=== PATIENT | female | born 1960 | race Caucasian/White ===

== ENCOUNTER 2021-03-02 09:08 | Inpatient (IN) ==
[2021-03-02] MEDS ORDERED: ONDANSETRON INJ 2 MG/ML 2 ML VIAL IV STA (09:53)
[2021-03-02] MEDS ORDERED: MoRPHine SULFATE 4 MG/ML 1 ML CARP\\VIAL IV STA (09:53)
[2021-03-02] MEDS ORDERED: dexAMETHasone**PF** 10 MG/ML VIAL IV ONE (09:53)
[2021-03-02] MEDS ORDERED: ACETAMINOPHEN 1,000 MG/100 ML VIAL IV STA (09:53)
--- NOTE | 2021-03-02 10:00 | Emergency Department Note ---
History of Present Illness General Chief complaint: Back Injury/Pain Stated complaint: BACK PAIN Time Seen by Provider: 03/02/21 09:44 History of Present Illness Maximum Pain Intensity: 10 This is a 60-year-old female that presents to the emergency department via private vehicle accompanied by male with complaints of "back pain". The patient notes that this past Tuesday evening she fell while attempting get into bed. She notes that she injured her back when doing so. She denies striking the head or loss of consciousness. She states that she then presented here to be seen in the ED on Tuesday and notes that she had imaging performed. She notes that there was a fracture. She notes difficulty managing the pain at home. She also notes trouble urinating. She also notes that upon arriving here she coughed and accidentally moved her bowels in her pants. Current pain 05/03. She does note pain radiating into her legs. She denies any weakness or numbness/tingling in the genital region. Home Medications Medication Instructions Recorded Confirmed Type sucralfate 1 gram tablet (Carafate) 1 g PO ACHS #180 tab 09/02/20 03/02/21 Rx dicyclomine 20 mg tablet 20 mg PO TID #90 tab 01/09/21 03/02/21 Rx propylthiouracil 50 mg tablet 50 mg PO BID #90 tab 01/29/21 03/02/21 Rx albuterol sulfate 90 mcg/actuation 2 puff INHALATION Q6H PRN #18 g 02/16/21 03/02/21 Rx aerosol inhaler (Ventolin HFA) trazodone 100 mg tablet 100 mg PO HS #90 tab 02/26/21 03/02/21 Rx amlodipine 5 mg tablet (Norvasc) 5 mg PO BID 02/28/21 03/02/21 History clonazepam 0.5 mg tablet (Klonopin) 0.5 mg PO HS 02/28/21 03/02/21 History fluticasone fur. 100 mcg-umeclid 1 inh INHALATION DAILY PRN 02/28/21 03/02/21 History 62.5 mcg-vilant 25 mcg inhalat.powder (Trelegy Ellipta) hydrochlorothiazide 12.5 mg tablet 12.5 mg PO QAM 02/28/21 03/02/21 History hydrocodone 5 mg-acetaminophen 325 1 tab PO Q4H PRN #15 tab 02/28/21 03/02/21 Rx mg tablet losartan 50 mg tablet (Cozaar) 50 mg PO BID 02/28/21 03/02/21 History montelukast 10 mg tablet 10 mg PO HS 02/28/21 03/02/21 History (Singulair) nicotine 14 mg/24 hr daily 1 patch TRANSDERMAL DAILY 02/28/21 03/02/21 History transdermal patch (Nicoderm CQ) ondansetron 4 mg disintegrating 4 mg PO Q6H PRN #10 tab 02/28/21 03/02/21 Rx tablet pantoprazole 40 mg tablet,delayed 40 mg PO BID 02/28/21 03/02/21 History release (Protonix) sertraline 100 mg tablet (Zoloft) 100 mg PO HS 02/28/21 03/02/21 History Allergies Allergy/AdvReac Type Severity Reaction Status Date / Time amitriptyline Allergy Intermediate Headache Verified 03/02/21 10:56 Penicillins Allergy Unknown Unknown Verified 03/02/21 10:56 codeine AdvReac Mild Vomiting Verified 03/02/21 10:56 Past Med/Surg History Medical History Cervical disc disease Chronic diarrhea Depression with anxiety Hepatic steatosis patient unaware noted by ultrasound 07/10/2020 Hypertension Irritable bowel disease Ovarian cancer (~09/2019) had hysterectomy Tobacco dependence due to cigarettes .5-1 pack per day since age 18 Surgical History H/O sinus surgery Status post hysterectomy Status post right knee replacement Status post tubal ligation Family History Mother Heart disease Father Heart disease Parkinsons Myocardial infarction Denies family history of Ovarian cancer Prostate cancer Breast cancer Colorectal cancer Social History Smoking Status: Current every day smoker Tobacco Type: Cigarettes Age Started Using Tobacco: 18; packs per day: 1.5; Cigarettes Per Day: 20; Second Hand Exposure: No; Hx Alcohol Use: Yes Alcohol Intake Frequency: Monthly or Less Hx Substance Use: Yes (cbd-thc lotion) Preferred Language: Tongan Communication Ability: Effective Visual Impairment: No Limitations Hearing Ability: Normal Embedded Linux Developer Required: No Beliefs That Will Affect Care: None marital status: Current Living Situation: Alone current occupational status: disabled Feels Safe at Home: Yes Diet Comment: due to symtpoms of N & V caffeine: Yes during the past year weight has: decreased > 10 lbs Dental Care, Regularly: No Physical Activity Frequency: 5-6 Times per Week Seatbelt Use: always Sunscreen Use: Yes Assistive Devices: Glasses Physical Exam Vital Signs Vital Signs - 24 hr 03/02/21 09:15 03/02/21 09:28 03/02/21 10:00 Temperature 36.4 C L Temperature Source Temporal Artery Scan Pulse Rate 97 H 75 88 Pulse Rate [Left Finger] Pulse Rate from SpO2 Sensor 77 87 Pulse Rhythm [Left Finger] Pulse Strength [Left Finger] Respiratory Rate 16 22 20 Respiratory Effort / Characteristics Non-Labored Respiratory Depth Normal Respiratory Pattern Blood Pressure 111/59 L 131/70 122/66 Blood Pressure [Right Arm] Blood Pressure Mean 76 90 84 Blood Pressure Mean [Right Arm] Blood Pressure Position [Right Arm] Pulse Oximetry 90 96 92 Oxygen Delivery Method Room Air Room Air Room Air Oxygen Flow Rate Sepsis Recent Fever Within 48 Hours No Sepsis New/Unexplained Change in Mental Status No Sepsis Action Taken by Nursing No Action Required Oxygen Flow Rate - Titration Pulse Oximetry Post Tiitration 03/02/21 10:15 03/02/21 11:08 03/02/21 11:10 Temperature Temperature Source Pulse Rate 103 H 93 H Pulse Rate [Left Finger] Pulse Rate from SpO2 Sensor 103 H 94 H Pulse Rhythm [Left Finger] Pulse Strength [Left Finger] Respiratory Rate 16 20 Respiratory Effort / Characteristics Respiratory Depth Respiratory Pattern Blood Pressure Blood Pressure [Right Arm] Blood Pressure Mean Blood Pressure Mean [Right Arm] Blood Pressure Position [Right Arm] Pulse Oximetry 88 L 96 95 Oxygen Delivery Method Room Air Nasal Cannula Nasal Cannula Oxygen Flow Rate 2 2 Sepsis Recent Fever Within 48 Hours Sepsis New/Unexplained Change in Mental Status Sepsis Action Taken by Nursing Oxygen Flow Rate - Titration 2 Pulse Oximetry Post Tiitration 97 03/02/21 11:35 03/02/21 11:40 03/02/21 11:50 Temperature Temperature Source Pulse Rate 90 90 77 Pulse Rate [Left Finger] Pulse Rate from SpO2 Sensor 90 76 Pulse Rhythm [Left Finger] Pulse Strength [Left Finger] Respiratory Rate 16 14 16 Respiratory Effort / Characteristics Respiratory Depth Respiratory Pattern Blood Pressure Blood Pressure [Right Arm] Blood Pressure Mean Blood Pressure Mean [Right Arm] Blood Pressure Position [Right Arm] Pulse Oximetry 94 95 96 Oxygen Delivery Method Nasal Cannula Nasal Cannula Nasal Cannula Oxygen Flow Rate 2 2 2 Sepsis Recent Fever Within 48 Hours Sepsis New/Unexplained Change in Mental Status Sepsis Action Taken by Nursing Oxygen Flow Rate - Titration Pulse Oximetry Post Tiitration 03/02/21 12:00 03/02/21 13:02 03/02/21 13:10 Temperature Temperature Source Pulse Rate 76 74 74 Pulse Rate [Left Finger] Pulse Rate from SpO2 Sensor 76 73 72 Pulse Rhythm [Left Finger] Pulse Strength [Left Finger] Respiratory Rate 15 21 21 Respiratory Effort / Characteristics Respiratory Depth Respiratory Pattern Blood Pressure 123/72 Blood Pressure [Right Arm] Blood Pressure Mean 89 Blood Pressure Mean [Right Arm] Blood Pressure Position [Right Arm] Pulse Oximetry 91 93 94 Oxygen Delivery Method Nasal Cannula Nasal Cannula Nasal Cannula Oxygen Flow Rate 2 2 2 Sepsis Recent Fever Within 48 Hours Sepsis New/Unexplained Change in Mental Status Sepsis Action Taken by Nursing Oxygen Flow Rate - Titration Pulse Oximetry Post Tiitration 03/02/21 13:20 03/02/21 13:30 03/02/21 13:40 Temperature Temperature Source Pulse Rate 69 73 88 Pulse Rate [Left Finger] Pulse Rate from SpO2 Sensor 70 73 90 Pulse Rhythm [Left Finger] Pulse Strength [Left Finger] Respiratory Rate 13 12 19 Respiratory Effort / Characteristics Respiratory Depth Respiratory Pattern Blood Pressure Blood Pressure [Right Arm] Blood Pressure Mean Blood Pressure Mean [Right Arm] Blood Pressure Position [Right Arm] Pulse Oximetry 92 93 92 Oxygen Delivery Method Nasal Cannula Nasal Cannula Nasal Cannula Oxygen Flow Rate 2 2 2 Sepsis Recent Fever Within 48 Hours Sepsis New/Unexplained Change in Mental Status Sepsis Action Taken by Nursing Oxygen Flow Rate - Titration Pulse Oximetry Post Tiitration 03/02/21 13:50 03/02/21 14:00 03/02/21 14:10 Temperature Temperature Source Pulse Rate 79 88 93 H Pulse Rate [Left Finger] Pulse Rate from SpO2 Sensor 80 92 H 93 H Pulse Rhythm [Left Finger] Pulse Strength [Left Finger] Respiratory Rate 19 18 14 Respiratory Effort / Characteristics Respiratory Depth Respiratory Pattern Blood Pressure Blood Pressure [Right Arm] Blood Pressure Mean Blood Pressure Mean [Right Arm] Blood Pressure Position [Right Arm] Pulse Oximetry 92 92 92 Oxygen Delivery Method Nasal Cannula Nasal Cannula Nasal Cannula Oxygen Flow Rate 2 2 2 Sepsis Recent Fever Within 48 Hours Sepsis New/Unexplained Change in Mental Status Sepsis Action Taken by Nursing Oxygen Flow Rate - Titration Pulse Oximetry Post Tiitration 03/02/21 14:20 03/02/21 14:30 03/02/21 14:52 Temperature Temperature Source Pulse Rate 75 72 86 Pulse Rate [Left Finger] Pulse Rate from SpO2 Sensor 75 72 Pulse Rhythm [Left Finger] Pulse Strength [Left Finger] Respiratory Rate 13 14 18 Respiratory Effort / Characteristics Respiratory Depth Respiratory Pattern Blood Pressure 120/66 Blood Pressure [Right Arm] Blood Pressure Mean 84 Blood Pressure Mean [Right Arm] Blood Pressure Position [Right Arm] Pulse Oximetry 91 91 95 Oxygen Delivery Method Nasal Cannula Nasal Cannula Oxygen Flow Rate 2 2 Sepsis Recent Fever Within 48 Hours Sepsis New/Unexplained Change in Mental Status Sepsis Action Taken by Nursing Oxygen Flow Rate - Titration Pulse Oximetry Post Tiitration 03/02/21 14:53 03/02/21 16:27 Temperature Temperature Source Pulse Rate Pulse Rate [Left Finger] 76 90 Pulse Rate from SpO2 Sensor Pulse Rhythm [Left Finger] Regular Regular Pulse Strength [Left Finger] Normal Normal Respiratory Rate 15 17 Respiratory Effort / Characteristics Non-Labored Spontaneous Non-Labored Spontaneous Respiratory Depth Normal Normal Respiratory Pattern Regular Regular Blood Pressure Blood Pressure [Right Arm] 120/66 125/71 Blood Pressure Mean Blood Pressure Mean [Right Arm] 84 89 Blood Pressure Position [Right Arm] Lying Sitting Pulse Oximetry 93 96 Oxygen Delivery Method Nasal Cannula Nasal Cannula Oxygen Flow Rate 2 2 Sepsis Recent Fever Within 48 Hours Sepsis New/Unexplained Change in Mental Status Sepsis Action Taken by Nursing Oxygen Flow Rate - Titration Pulse Oximetry Post Tiitration VITAL SIGNS - Vital signs and nursing notes were reviewed. Stable and afebrile. GENERAL -60-year-old female appearing her stated age who appears to be in pain. Communicates well with provider and answers questions appropriately. SKIN - Without rashes. No meningeal or petechial rash. HEAD - NC/AT. NECK - Neck with FROM. No nuchal rigidity. LUNGS - Chest wall symmetric without accessory muscle use, intercostals retractions, or central cyanosis. Normal vesicular breath sounds CTA B/L. No wheezes, rales, or rhonchi appreciated. CARDIAC - RRR with S1/S2. No murmur, rubs, or gallops appreciated. ABDOMEN - Abdominal contour normal without pulsations or visible masses. BS normoactive all four quadrants. No tenderness, palpable masses, hepatosplenomegaly, or ascites noted. EXTREMITIES - No clubbing or peripheral cyanosis. Lower extremity Achilles reflex intact bilaterally. +5/5 strength noted in UE/LE bilaterally. NEUROLOGIC - Cranial nerves II through XII grossly intact. Sensory intact to light touch throughout. PSYCH - A&O, and cooperates fully with examiner. Pt is very pleasant and interacts well with examiner. Course Administered Medications Discontinued Medications Dexamethasone Sodium Phosphate (DexamethasonePf 10 Mg/Ml Vial) 10 mg IV NOW ONE Stop: 03/02/21 09:54 Last Admin: 03/02/21 10:45 Dose: 10 mg Documented by: [id number] Acetaminophen (Ofirmev) 1,000 mg in 100 mls @ 400 mls/hr IV NOW STA Stop: 03/02/21 10:07 Last Infusion: 03/02/21 11:09 Dose: 0 mls/hr Documented by: [id number] Admin: 03/02/21 10:46 Dose: 400 mls/hr Documented by: [id number] Lorazepam (Ativan) 0.5 mg in 1 mls @ 1 mls/min IV NOW STA Stop: 03/02/21 13:08 Last Admin: 03/02/21 15:32 Dose: 1 mls/min Documented by: [id number] Ioversol (Optiray 320 100ml) 94 ml IV ONCE ONE Stop: 03/02/21 11:24 Last Admin: 03/02/21 11:23 Dose: 94 ml Documented by: [id number] Lorazepam (Lorazepam 2 Mg/4 Ml Vial) Confirm Administered Dose 2 mg .ROUTE .STK- MED ONE Stop: 03/02/21 15:31 Last Admin: 03/02/21 15:38 Dose: Not Given Documented by: [id number] Morphine Sulfate (Morphine Sulfate 4 Mg/Ml 1 Ml Carp\\Vial) 4 mg IV NOW STA Stop: 03/02/21 09:54 Last Admin: 03/02/21 10:41 Dose: 4 mg Documented by: [id number] Ondansetron HCl (Ondansetron Inj 2 Mg/Ml 2 Ml Vial) 4 mg IV NOW STA Stop: 03/02/21 09:54 Last Admin: 03/02/21 10:39 Dose: 4 mg Documented by: [id number] Medical Decision Making Laboratory Data Result diagrams: 03/02/21 10:02 03/02/21 10:02 Lab Results 03/02/21 03/02/21 03/02/21 Range/Units 10:02 10:02 10:28 WBC 6.70 (4.8-10.8) K/uL RBC 4.08 L (4.2-5.4) M/uL Hgb 12.9 (12.0-16.0) g/dL Hct 37.8 (37-47) % MCV 92.6 (80-100) fL MCH 31.6 (25-34) pg MCHC 34.1 (32-36) g/dL RDW Std Deviation 41.8 (36.4-46.3) fL RDW Coeff of Gladys 12.2 (11.5-14.5) % Plt Count 185 (130-400) K/uL MPV 10.2 (7.4-10.4) fL Immature Gran % (Auto) 0.3 % Neut % (Auto) 72.2 % Lymph % (Auto) 11.5 % Parmer % (Auto) 13.7 % Eos % (Auto) 1.9 % Baso % (Auto) 0.4 % Neut # (Auto) 4.83 (1.4-6.5) K/uL Lymph # (Auto) 0.77 L (1.2-3.4) K/uL Parmer # (Auto) 0.92 H (0.11-0.59) K/uL Eos # (Auto) 0.13 (0-0.5) K/uL Baso # (Auto) 0.03 (0-0.2) K/uL Immature Gran # (Auto) 0.02 (0.00-0.02) K/uL Sodium 127 L (136-145) mmol/L Potassium 4.5 D (3.5-5.1) mmol/L Chloride 95 L (98-107) mmol/L Carbon Dioxide 27 (21-32) mmol/L Anion Gap 5.0 (3-11) BUN 13 (7-18) mg/dl Creatinine 0.91 (0.6-1.2) mg/dl Est Cr Clr Drug Dosing 62.3 ml/min Est GFR ( Amer) 78.4 ml/min Est GFR (Non-Af Amer) 67.6 ml/min BUN/Creatinine Ratio 14.0 (10-20) Glucose 91 (70-99) mg/dl Calcium 8.7 (8.5-10.1) mg/dl Total Bilirubin 0.5 (0.2-1) mg/dl AST 20 (15-37) U/L ALT 20 (12-78) U/L Alkaline Phosphatase 98 (45-117) U/L Total Protein 7.1 (6.4-8.2) gm/dl Albumin 3.4 (3.4-5.0) gm/dl Globulin 3.7 (2.5-4.0) gm/dl Albumin/Globulin Ratio 0.9 (0.9-2) Specimen Hemolysis Urine Color Urine Appearance (Clear) Urine pH (4.5-7.5) Ur Specific [place] (1.000-1.030) Urine Protein (Negative) Urine Glucose (UA) (Negative) Urine Ketones (Negative) Urine Blood (Negative) Urine Nitrite (Negative) Urine Bilirubin (Negative) Urine Urobilinogen (Negative) Ur Leukocyte Esterase (Negative) Urine RBC (0-4) /hpf Urine WBC (0-5) /hpf Ur Epithelial Cells (0-5) /lpf Urine Bacteria (Negative) COVID-19 Eval Order Covid19 at [facility] SARS-CoV-2 (PCR) (Negative) 03/02/21 03/02/21 Range/Units 10:28 10:50 WBC (4.8-10.8) K/uL RBC (4.2-5.4) M/uL Hgb (12.0-16.0) g/dL Hct (37-47) % MCV (80-100) fL MCH (25-34) pg MCHC (32-36) g/dL RDW Std Deviation (36.4-46.3) fL RDW Coeff of Gladys (11.5-14.5) % Plt Count (130-400) K/uL MPV (7.4-10.4) fL Immature Gran % (Auto) % Neut % (Auto) % Lymph % (Auto) % Parmer % (Auto) % Eos % (Auto) % Baso % (Auto) % Neut # (Auto) (1.4-6.5) K/uL Lymph # (Auto) (1.2-3.4) K/uL Parmer # (Auto) (0.11-0.59) K/uL Eos # (Auto) (0-0.5) K/uL Baso # (Auto) (0-0.2) K/uL Immature Gran # (Auto) (0.00-0.02) K/uL Sodium (136-145) mmol/L Potassium (3.5-5.1) mmol/L Chloride (98-107) mmol/L Carbon Dioxide (21-32) mmol/L Anion Gap (3-11) BUN (7-18) mg/dl Creatinine (0.6-1.2) mg/dl Est Cr Clr Drug Dosing ml/min Est GFR ( Amer) ml/min Est GFR (Non-Af Amer) ml/min BUN/Creatinine Ratio (10-20) Glucose (70-99) mg/dl Calcium (8.5-10.1) mg/dl Total Bilirubin (0.2-1) mg/dl AST (15-37) U/L ALT (12-78) U/L Alkaline Phosphatase (45-117) U/L Total Protein (6.4-8.2) gm/dl Albumin (3.4-5.0) gm/dl Globulin (2.5-4.0) gm/dl Albumin/Globulin Ratio (0.9-2) Specimen Hemolysis Urine Color Yellow Urine Appearance Clear (Clear) Urine pH 5.5 (4.5-7.5) Ur Specific [place] <= 1.005 (1.000-1.030) Urine Protein Trace H (Negative) Urine Glucose (UA) Negative (Negative) Urine Ketones Negative (Negative) Urine Blood Negative (Negative) Urine Nitrite Negative (Negative) Urine Bilirubin Negative (Negative) Urine Urobilinogen Negative (Negative) Ur Leukocyte Esterase Negative (Negative) Urine RBC 0-4 (0-4) /hpf Urine WBC 0-5 (0-5) /hpf Ur Epithelial Cells 10-20 H (0-5) /lpf Urine Bacteria Negative (Negative) COVID-19 Eval Order SARS-CoV-2 (PCR) NEGATIVE (Negative) Imaging Data Radiologist's Impression: Lumbar Spine CT 03/02/21 09:53 CT SCAN OF THE ABDOMEN AND PELVIS WITH IV CONTRAST; CT SCAN OF THE LUMBAR SPINE WITH IV CONTRAST CLINICAL HISTORY: Fall. Low back pain. Generalized abdominal pain. COMPARISON STUDY: Abdominal CT dated 02/06/2010. Lumbar spine radiographs dated 02/28/2021. TECHNIQUE: Following the IV administration of 94 cc of Optiray 320, CT scan of the abdomen and pelvis is performed from the lung bases to the proximal femora. Additionally, CT scan of the lumbar spine is performed from the lower thoracic spine to the sacrum. Images for both examinations are reviewed in the axial, sagittal, and coronal planes. IV contrast was administered without complication. A dose lowering technique was utilized adhering to the principles of ALARA. FINDINGS: Lung bases: The heart is normal in size noting a small pericardial effusion. There are coronary artery calcifications. The lung bases are clear. Liver: The contrast-enhanced liver is normal in size, contour, and attenuation. There is no intrahepatic biliary ductal dilatation. The hepatic veins and portal veins are patent. Gallbladder: Unremarkable. Spleen: Normal in size and attenuation. Pancreas: Unremarkable. Adrenal glands: Unremarkable. Kidneys: The contrast enhanced kidneys are normal in size and without hydro nephrosis. The kidneys enhance symmetrically. Abdominal vasculature: The abdominal aorta is normal in course and caliber noting moderate atherosclerotic calcification. Bowel: There is moderate colonic diverticulosis without CT evidence of acute div erticulitis. Moderate fecal retention is seen throughout the colon. No bowel obstruction is identified. The appendix is well-visualized and normal. Peritoneum: There is no intraperitoneal free air or abdominal ascites. Lymphadenopathy: None. Pelvic viscera: The bladder is normal as visualized. The uterus is surgically a bsent. No adnexal lesion is seen. Skeletal structures: See below for dedicated discussion of the lumbar spine. The skeletal structures appear osteopenic. No lytic or blastic lesions are seen. The bony pelvis and proximal femora appear intact. LUMBAR SPINE: There is an acute superior endplate compression fracture of L1 with mild loss of height and surrounding paravertebral edema. No significantly retropulsed fragments are identified. Vertebral body height is otherwise maintained throughout the lumbar spine. There is minimal anterolisthesis at L4- L5. Alignment is otherwise preserved. The transverse and spinous processes are intact. There is no evidence of spondylolysis. Facet arthropathy is seen in the lower lumbar region. There is advanced disc space narrowing with endplate sclerosis at L5-S1. A large posterior disc osteophyte complex is noted at this level within an inferiorly extruded fragment. Only mild degenerative disc space narrowing is seen at the remaining lumbar levels. Broad-based posterior disc bulge is noted at L4-L5. This likely contribute to acquired compromise the central canal and impinges the exiting bilateral L4 nerve roots. The paraspinous soft tissues are within normal limits. IMPRESSION: 1. There is no evidence of solid organ injury in the abdomen or pelvis. 2. There is an acute superior endplate compression fracture of L1 with mild loss of height as detailed above. No retropulsed fragments are identified. 3. No additional acute fracture is seen involving the lumbar spine. 4. Degenerative disc disease at L4-L5 and L5-S1 as above. An inferiorly extruded calcified disc fragment is suggested at L5. 5. Additional findings as above. ACT 112: Negative or not required by law. Electronically signed by: Ariel Cummings M.D. 03/02/2021 11:[address] 03/02/21 09:53 CT thoracic spine w con HISTORY: 60 years-old Female Fall on tuesday, severe back pain, abd pain . Acute severe mid back pain status post fall COMPARISON: CT lumbar spine of same day, lumbar spine radiographs 02/28/2021 and 12/29/2020. TECHNIQUE: Multiple axial CT images of the thoracic spine were obtained following the intravenous administration of 94 mL Optiray 320. A dose lowering technique was used consistent with the principals of ALARA. FINDINGS: Acute versus subacute L1 compression deformity with 30% superior endplate height loss is unchanged from the 02/28/2021 exam, however is new from 12/29/2020. No retropulsion. No additional acute fracture or subluxation. Mild multilevel in tervertebral disc space narrowing with mild to moderate spondylitic spurring and mild facet arthrosis. The imaged ribs appear intact. The imaged lung still appear clear. No pneumothorax. IMPRESSION: 1. 30% superior endplate L1 compression deformity is new from 12/29/2020 and appears acute. No retropulsion. 2. No acute thoracic spine fracture identified. 3. Degenerative changes as above. ACT 112: Negative or not required by law. The above report was generated using voice recognition software. It may contain grammatical, syntax or spelling errors. Electronically signed by: Booker Rosenberg M.D. 03/02/2021 11:46 AM Abdomen/Pelvis CT 03/02/21 09:55 CT SCAN OF THE ABDOMEN AND PELVIS WITH IV CONTRAST; CT SCAN OF THE LUMBAR SPINE WITH IV CONTRAST CLINICAL HISTORY: Fall. Low back pain. Generalized abdominal pain. COMPARISON STUDY: Abdominal CT dated 02/06/2010. Lumbar spine radiographs dated 02/28/2021. TECHNIQUE: Following the IV administration of 94 cc of Optiray 320, CT scan of the abdomen and pelvis is performed from the lung bases to the proximal femora. Additionally, CT scan of the lumbar spine is performed from the lower thoracic spine to the sacrum. Images for both examinations are reviewed in the axial, sagittal, and coronal planes. IV contrast was administered without complication. A dose lowering technique was utilized adhering to the principles of ALARA. FINDINGS: Lung bases: The heart is normal in size noting a small pericardial effusion. There are coronary artery calcifications. The lung bases are clear. Liver: The contrast-enhanced liver is normal in size, contour, and attenuation. There is no intrahepatic biliary ductal dilatation. The hepatic veins and portal veins are patent. Gallbladder: Unremarkable. Spleen: Normal in size and attenuation. Pancreas: Unremarkable. Adrenal glands: Unremarkable. Kidneys: The contrast enhanced kidneys are normal in size and without hydronephrosis. The kidneys enhance symmetrically. Abdominal vasculature: The abdominal aorta is normal in course and caliber noting moderate atherosclerotic calcification. Bowel: There is moderate colonic diverticulosis without CT evidence of acute diverticulitis. Moderate fecal retention is seen throughout the colon. No bowel obstruction is identified. The appendix is well-visualized and normal. Peritoneum: There is no intraperitoneal free air or abdominal ascites. Lymphadenopathy: None. Pelvic viscera: The bladder is normal as visualized. The uterus is surgically absent. No adnexal lesion is seen. Skeletal structures: See below for dedicated discussion of the lumbar spine. The skeletal structures appear osteopenic. No lytic or blastic lesions are seen. The bony pelvis and proximal femora appear intact. LUMBAR SPINE: There is an acute superior endplate compression fracture of L1 with mild loss of height and surrounding paravertebral edema. No significantly retropulsed fragments are identified. Vertebral body height is otherwise maintained throughout the lumbar spine. There is minimal anterolisthesis at L4- L5. Alignment is otherwise preserved. The transverse and spinous processes are intact. There is no evidence of spondylolysis. Facet arthropathy is seen in the lower lumbar region. There is advanced disc space narrowing with endplate sclerosis at L5-S1. A large posterior disc osteophyte complex is noted at this level within an inferiorly extruded fragment. Only mild degenerative disc space narrowing is seen at the remaining lumbar levels. Broad-based posterior disc bulge is noted at L4-L5. This likely contribute to acquired compromise the central canal and impinges the exiting bilateral L4 nerve roots. The paraspinous soft tissues are within normal limits. IMPRESSION: 1. There is no evidence of solid organ injury in the abdomen or pelvis. 2. There is an acute superior endplate compression fracture of L1 with mild loss of height as detailed above. No retropulsed fragments are identified. 3. No additional acute fracture is seen involving the lumbar spine. 4. Degenerative disc disease at L4-L5 and L5-S1 as above. An inferiorly extruded calcified disc fragment is suggested at L5. 5. Additional findings as above. ACT 112: Negative or not required by law. Electronically signed by: Ariel Cummings M.D. 03/02/2021 11:50 AM Lumbar Spine MRI 03/02/21 12:10 LUMBAR SPINE MRI HISTORY: fall, low back pain TECHNIQUE: Multiplanar multisequence MRI of the lumbar spine was performed without the use of contrast. COMPARISON: Lumbar spine CT 03/02/2021. FINDINGS: For the purpose of the report the L5-S1 disc space will be located on axial image 29 of 31. There is 4 mm of anterolisthesis of L4 on L5. Severe disc space narrowing at L5- S1. Mild disc space narrowing throughout the remaining lumbar spine. There is an acute mild superior endplate compression fracture at L1, unchanged. This demonstrates up to 10% loss of height anteriorly. No associated retropulsion. No additional fractures identified within the lumbar spine. Endplate edema at L5-S1 is likely due to the long-standing degenerative change. The conus terminates at the L1-L2 disc space level. Mild paravertebral edema at the L1 level is likely secondary to the adjacent fracture. Mild motion artifact. L1-L2: No significant central canal or neural foraminal narrowing. L2-L3: Small broad-based posterior disc bulge without significant central canal or neural foraminal narrowing. L3-L4: No significant central canal or neural foraminal narrowing. L4-L5: Small broad-based posterior disc bulge with ligamentum and facet hypertrophy resulting in [id number] central canal and mild to moderate bilateral neural foraminal narrowing. L5-S1: Broad-based posterior disc bulge without significant central canal na rrowing. There is moderate right and mild left neural foraminal narrowing. IMPRESSION: 1. Redemonstration of the acute mild superior endplate compression fracture at L1. No associated retropulsion. 2. No additional fractures within the lumbar spine. 3. Degenerative changes as described above. ACT 112: Negative or not required by law. Electronically signed by: Diego Claros M.D. 03/02/2021 4:36 PM MDM Narrative Patient was seen and evaluated as above in room A12. Review was performed of nursing notes and vital signs. I did review pertinent previous visits and patient history. After obtaining a thorough history and physical examination the above work up was performed. Patient presents to us today with back pain. She is nontoxic on examination but does appear to be in pain. Her vital signs are stable. Options of care were discussed with the patient. IV access established. Labs were drawn. She was given IV acetaminophen, IV dexamethasone, IV morphine, IV Zofran. She was reevaluated improvement. CT scan was obtained of the T-spine, L-spine and CT scan of the abdomen and pelvis. Results of these as above. There is redemonstration of the acute mild superior endplate compression fracture at L1. No associated upper propulsion. There does not appear to be any acute finding within the abdomen or pelvis. There is some degenerative disc disease noted at L4-L5 and L5-L1. There is also a comment about the L1 c ompression deformity being about 30%. I discussed this with the on-call spine surgeon, Dr. Pimentel. We agreed upon proceeding with MRI of the L-spine and I informed him that the patient has had difficulty managing pain in the outpatient setting and believe that inpatient management would be best. Case then discussed with the hospitalist. Please refer to further documentation regarding her stay. Laboratory studies reveal no leukocytosis or concern anemia. Mild hyponatremia noted. No emergent metabolic disturbance. Urinalysis does not suggest infection. Covid negative. GCS: 15 In the evaluation and treatment of this patient the following differential diagnosis entertained: Fracture, dislocation, subluxation, cauda equina syndrome, AAA, diverticulitis, appendicitis, torsion, osteomyelitis, piriformis syndrome, strain, sprain, among others. Impression & Plan Closed compression fracture of L1 vertebra, Acute hyponatremia Discharge Plan Visit Data Chief Complaint: Back Injury/Pain Stated Complaint: BACK PAIN ED Provider: Luis Shook ED Midlevel Provider: Delio Zuluaga Discharge Problem: Closed compression fracture of L1 vertebra, Acute hyponatremia Forms Stand Alone Forms: [facility] Prescriptions Prescriptions: No Action dicyclomine 20 mg tablet 20 mg PO TID Qty: 90 RF: 1 propylthiouracil 50 mg tablet 50 mg PO BID Qty: 90 RF: 1 albuterol sulfate [Ventolin HFA] 90 mcg/actuation HFA aerosol inhaler 2 puff inhalation Q6H PRN (Reason: Shortness Of Breath Or Wheezing) Qty: 18 RF: 2 trazodone 100 mg tablet 100 mg PO HS Qty: 90 RF: 1 sucralfate [Carafate] 1 gram tablet 1 g PO ACHS Qty: 180 RF: 3 hydrochlorothiazide 12.5 mg tablet 12.5 mg PO QAM RF: 0 losartan [Cozaar] 50 mg tablet 50 mg PO BID RF: 0 nicotine [Nicoderm CQ] 14 mg/24 hr patch 24 hour 1 patch transdermal DAILY RF: 0 clonazepam [Klonopin] 0.5 mg tablet 0.5 mg PO HS RF: 0 sertraline [Zoloft] 100 mg tablet 100 mg PO HS RF: 0 amlodipine [Norvasc] 5 mg tablet 5 mg PO BID RF: 0 pantoprazole [Protonix] 40 mg tablet,delayed release (DR/EC) 40 mg PO BID RF: 0 montelukast [Singulair] 10 mg tablet 10 mg PO HS RF: 0 Trelegy Ellipta 100-62.5-25 mcg blister with device 1 inh inhalation DAILY PRN (Reason: Shortness Of Breath) RF: 0 hydrocodone-acetaminophen 5-325 mg tablet 1 tab PO Q4H PRN (Reason: pain) Qty: 15 RF: 0 ondansetron 4 mg tablet,disintegrating 4 mg PO Q6H PRN (Reason: nausea and vomiting) Qty: 10 RF: 0 Referrals Referrals: Alonzo Goddard CRNP [Primary Care Provider] -
[2021-03-02 10:30] LABS: Basophils # (auto) 0.03 K/uL (0-0.2); Basophils % (auto) 0.4 %; Eosinophils # (auto) 0.13 K/uL (0-0.5); Eosinophils % (auto) 1.9 %; Hematocrit (blood only) 37.8 % (37-47); Hemoglobin 12.9 g/dL (12.0-16.0); Immature Granulocytes # (auto) 0.02 K/uL (0.00-0.02); Immature Granulocytes % (auto) 0.3 %; Lymphocytes # (auto) 0.77 K/uL (1.2-3.4); Lymphocytes % (auto) 11.5 %; Mean Corpuscular Hemoglobin 31.6 pg (25-34); Mean Corpuscular Hgb Conc 34.1 g/dL (32-36); Mean Corpuscular Volume 92.6 fL (80-100); Mean Platelet Volume 10.2 fL (7.4-10.4); Monocytes # (auto) 0.92 K/uL (0.11-0.59); Monocytes % (auto) 13.7 %; Neutrophils # (auto) 4.83 K/uL (1.4-6.5); Neutrophils % (auto) 72.2 %; Platelet Count 185 K/uL (130-400); RDW Coefficient of Variation 12.2 % (11.5-14.5); RDW Standard Deviation 41.8 fL (36.4-46.3); Red Blood Count 4.08 M/uL (4.2-5.4)
[2021-03-02 11:08] LABS: Albumin Globulin Ratio 0.9 (0.9-2); Albumin Level 3.4 gm/dl (3.4-5.0); Bilirubin,Total 0.5 mg/dl (0.2-1); Calcium 8.7 mg/dl (8.5-10.1); Creatinine Clr Calc Pharmacy 62.3 ml/min; Est GFR (African American) 78.4 ml/min; Est GFR (Non-African American) 67.6 ml/min; Globulin 3.7 gm/dl (2.5-4.0); Potassium 4.5 mmol/L (3.5-5.1); Total Protein 7.1 gm/dl (6.4-8.2)
[2021-03-02] MEDS ORDERED: OPTIRAY 320 100ml IV ONE (11:23)
--- NOTE | 2021-03-02 11:47 | CT Scan Report ---
CT thoracic spine w con HISTORY: 60 years-old Female Fall on tuesday, severe back pain, abd pain . Acute severe mid back pain status post fall COMPARISON: CT lumbar spine of same day, lumbar spine radiographs 02/28/2021 and 12/29/2020. TECHNIQUE: Multiple axial CT images of the thoracic spine were obtained following the intravenous adm inistration of 94 mL Optiray 320. A dose lowering technique was used consistent with the principals o f ALARA. FINDINGS: Acute versus subacute L1 compression deformity with 30% superior endplate height loss is unchanged fr om the 02/28/2021 exam, however is new from 12/29/2020. No retropulsion. No additional acute fracture or subluxation. Mild multilevel intervertebral disc space narrowing with mild to moderate spondylitic sp urring and mild facet arthrosis. The imaged ribs appear intact. The imaged lung still appear clear. No pneumothorax. IMPRESSION: 1. 30% superior endplate L1 compression deformity is new from 12/29/2020 and appears acute. No retropul ruperto. 2. No acute thoracic spine fracture identified. 3. Degenerative changes as above. ACT 112: Negative or not required by law. The above report was generated using voice recognition software. It may contain grammatical, syntax o r spelling errors. Electronically signed by: Booker Rosenberg M.D. 03/02/2021 11:46 AM
--- NOTE | 2021-03-02 11:52 | CT Scan Report ---
CT SCAN OF THE ABDOMEN AND PELVIS WITH IV CONTRAST; CT SCAN OF THE LUMBAR SPINE WITH IV CONTRAST CLINICAL HISTORY: Fall. Low back pain. Generalized abdominal pain. COMPARISON STUDY: Abdominal CT dated 02/06/2010. Lumbar spine radiographs dated 02/28/2021. TECHNIQUE: Following the IV administration of 94 cc of Optiray 320, CT scan of the abdomen and pelvi s is performed from the lung bases to the proximal femora. Additionally, CT scan of the lumbar spine is performed from the lower thoracic spine to the sacrum. Images for both examinations are reviewed i n the axial, sagittal, and coronal planes. IV contrast was administered without complication. A dose lowering technique was utilized adhering to the principles of ALARA. FINDINGS: Lung bases: The heart is normal in size noting a small pericardial effusion. There are coronary arter y calcifications. The lung bases are clear. Liver: The contrast-enhanced liver is normal in size, contour, and attenuation. There is no intrahepa tic biliary ductal dilatation. The hepatic veins and portal veins are patent. Gallbladder: Unremarkable. Spleen: Normal in size and attenuation. Pancreas: Unremarkable. Adrenal glands: Unremarkable. Kidneys: The contrast enhanced kidneys are normal in size and without hydronephrosis. The kidneys enh ance symmetrically. Abdominal vasculature: The abdominal aorta is normal in course and caliber noting moderate atheroscle rotic calcification. Bowel: There is moderate colonic diverticulosis without CT evidence of acute diverticulitis. Moderate fecal retention is seen throughout the colon. No bowel obstruction is identified. The appendix is w ell-visualized and normal. Peritoneum: There is no intraperitoneal free air or abdominal ascites. Lymphadenopathy: None. Pelvic viscera: The bladder is normal as visualized. The uterus is surgically absent. No adnexal lesi on is seen. Skeletal structures: See below for dedicated discussion of the lumbar spine. The skeletal structures appear osteopenic. No lytic or blastic lesions are seen. The bony pelvis and proximal femora appear i ntact. LUMBAR SPINE: There is an acute superior endplate compression fracture of L1 with mild loss of height and surrounding paravertebral edema. No significantly retropulsed fragments are identified. Vertebra l body height is otherwise maintained throughout the lumbar spine. There is minimal anterolisthesis a t L4-L5. Alignment is otherwise preserved. The transverse and spinous processes are intact. There is no evidence of spondylolysis. Facet arthropathy is seen in the lower lumbar region. There is advanced disc space narrowing with endplate sclerosis at L5-S1. A large posterior disc osteophyte complex is noted at this level within an inferiorly extruded fragment. Only mild degenerative disc space narrow ing is seen at the remaining lumbar levels. Broad-based posterior disc bulge is noted at L4-L5. This likely contribute to acquired compromise the central canal and impinges the exiting bilateral L4 nerv e roots. The paraspinous soft tissues are within normal limits. IMPRESSION: 1. There is no evidence of solid organ injury in the abdomen or pelvis. 2. There is an acute superior endplate compression fracture of L1 with mild loss of height as detaile d above. No retropulsed fragments are identified. 3. No additional acute fracture is seen involving the lumbar spine. 4. Degenerative disc disease at L4-L5 and L5-S1 as above. An inferiorly extruded calcified disc fragm ent is suggested at L5. 5. Additional findings as above. ACT 112: Negative or not required by law. Electronically signed by: Ariel Cummings M.D. 03/02/2021 11:50 AM
[2021-03-02 12:00] LABS: Appearance Urine Clear (Clear); Bilirubin Urine Negative (Negative); Blood Urine Negative (Negative); Color Urine Yellow; Glucose Urine UA Negative (Negative); Ketones Urine Negative (Negative); Leukocyte Esterase Urine Negative (Negative); Nitrite Urine Negative (Negative); Protein Urine Trace (Negative); Specific Gravity Urine <= 1.005 (1.000-1.030); Urobilinogen Urine Negative (Negative); pH Urine 5.5 (4.5-7.5)
[2021-03-02 12:19] LABS: Bacteria Urine Negative (Negative); RBC Urine 0-4 /hpf (0-4); WBC Urine 0-5 /hpf (0-5)
[2021-03-02] MEDS ORDERED: LORazepam 0.5 MG/1 ML VIAL IV STA (13:07)
[2021-03-02] MEDS ORDERED: MoRPHine SULFATE 4 MG/ML 1 ML CARP\\VIAL IV PRN (14:28)
--- NOTE | 2021-03-02 14:45 | History & Physical Report ---
Date of Service March 02, 2021 Assessment & Plan (1) Closed compression fracture of L1 vertebra: Plan: an acute superior endplate compression fracture of L1 with mild loss of height and surrounding paravertebral edema. There is minimal anterolisthesis at L4-L5. Alignment is otherwise preserved, Broad-based posterior disc bulge is noted at L4-L5. This likely contribute to acquired compromise the central canal and impinges the exiting bilateral L4 nerve roots. - Uncontrolled pain likley more related to disc bulge at L4-L5 - Tiered pain control - MRI- evaluate spinal canal - Orthopaedics consulted- appreciate recommendations - PT/OT - following pain control, PT/OT, Orthopaedics evaluation- patient may benefit from rehab - Will benefit from admission to assist with getting pain controlled delivered as well as help with ADLs (2) Acute pain: Plan: As above, continue with tiered pain control, - Will add bowel regimen for constipation- Docusate/senna daily, MOM 30 ml daily until BM then discontinue, Miralax (3) Acute hyponatremia: Plan: Likely related to decrease oral intake - LR at 80 ml per hour - Follow sodium levels in the morning (4) Cervical disc disease: Plan: Stable- pain control as above (5) Gastritis: Plan: Continue PPI and Carafate (6) COPD (chronic obstructive pulmonary disease): Plan: Continue Trelegy or equivalent Continue Albuterol 90mcg HFA q6 prn 2 puffs (7) DJD (degenerative joint disease) of knee: Plan: As above multimodal pain control, PT/OT - Orthopaedics following (8) Depression with anxiety: Plan: Continue PRN Klonopin - Trazodone at night (9) Hypertension: Plan: Continue Amlodipine, continue HCTZ and Losartan Appears well controlled (10) Irritable bowel disease: Plan: IBSD- usually on dicyclomine, Imodium and fiber as outpatient - Continue dicylomine - Hold Immodium - Add Miralax daily (11) Hyperthyroidism: Plan: Continue PTU 50 mg PO BID History of Present Illness Primary Care Provider: TRAM Adams 60 YOF with past medical history of: Cervical DJD, HTN, Depression, current smoker, left knee pain, Hyperthyroidism, IBSD, gastritis, chronic back pain, ovarian cancer- hysterectomy, HTN, right knee pain. Patient comes in to the EMD today for uncontrolled pain following L1 compression fracture on 02/28/21. Patient reports that she fell on Tuesday while getting up in her bedroom and tripped. She is unaware of what she fell on or how she fell. She reports to me that she tripped because her night light was out. She normally follows with [facility] for her right knee pain. The patient states that she lives by herself and has just been unable to get her pain controlled or get up to take care of herself. The pain is located in lower back and is sharp knifelike pain, that when she moves the wrong way will take her breath away. She was also finding it hard to take a deep breath as well as difficulty defecating due to constipation and pain, she was able to get up and urinate after pain control in the EMD. The pain is not associated with any nausea or vomiting and does not radiate and no reports of radiculopathy. In the EMD the patient was given Morphine, Decadron, and 1GM IV Tylenol; she states that her pain is better controlled at this time. Patient will be admitted for multimodal tiered pain control, will obtain an MRI of the lumbar spine for further evaluation. Orthopaedics has been consulted. For her hyponatremia associated with hypochloridemia likely related to her inability to get up and get nutrition and oral fluid intake. Allergies Allergy/AdvReac Type Severity Reaction Status Date / Time amitriptyline Allergy Intermediate Headache Verified 03/02/21 10:56 Penicillins Allergy Unknown Unknown Verified 03/02/21 10:56 codeine AdvReac Mild Vomiting Verified 03/02/21 10:56 Home Medications Medication Instructions Recorded Confirmed Type sucralfate 1 gram tablet (Carafate) 1 g PO ACHS #180 tab 09/02/20 03/02/21 Rx dicyclomine 20 mg tablet 20 mg PO TID #90 tab 01/09/21 03/02/21 Rx propylthiouracil 50 mg tablet 50 mg PO BID #90 tab 01/29/21 03/02/21 Rx albuterol sulfate 90 mcg/actuation 2 puff INHALATION Q6H PRN #18 g 02/16/21 03/02/21 Rx aerosol inhaler (Ventolin HFA) trazodone 100 mg tablet 100 mg PO HS #90 tab 02/26/21 03/02/21 Rx amlodipine 5 mg tablet (Norvasc) 5 mg PO BID 02/28/21 03/02/21 History clonazepam 0.5 mg tablet (Klonopin) 0.5 mg PO HS 02/28/21 03/02/21 History fluticasone fur. 100 mcg-umeclid 1 inh INHALATION DAILY PRN 02/28/21 03/02/21 History 62.5 mcg-vilant 25 mcg inhalat.powder (Trelegy Ellipta) hydrochlorothiazide 12.5 mg tablet 12.5 mg PO QAM 02/28/21 03/02/21 History hydrocodone 5 mg-acetaminophen 325 1 tab PO Q4H PRN #15 tab 02/28/21 03/02/21 Rx mg tablet losartan 50 mg tablet (Cozaar) 50 mg PO BID 02/28/21 03/02/21 History montelukast 10 mg tablet 10 mg PO HS 02/28/21 03/02/21 History (Singulair) nicotine 14 mg/24 hr daily 1 patch TRANSDERMAL DAILY 02/28/21 03/02/21 History transdermal patch (Nicoderm CQ) ondansetron 4 mg disintegrating 4 mg PO Q6H PRN #10 tab 02/28/21 03/02/21 Rx tablet pantoprazole 40 mg tablet,delayed 40 mg PO BID 02/28/21 03/02/21 History release (Protonix) sertraline 100 mg tablet (Zoloft) 100 mg PO HS 02/28/21 03/02/21 History Past Med/Surg History Medical History Cervical disc disease Chronic diarrhea Depression with anxiety Hepatic steatosis patient unaware noted by ultrasound 07/10/2020 Hypertension Irritable bowel disease Ovarian cancer (~09/2019) had hysterectomy Tobacco dependence due to cigarettes .5-1 pack per day since age 18 Surgical History H/O sinus surgery Status post hysterectomy Status post right knee replacement Status post tubal ligation Family History Mother Heart disease Father Heart disease Parkinsons Myocardial infarction Denies family history of Ovarian cancer Prostate cancer Breast cancer Colorectal cancer Social History Smoking Status: Former smoker Tobacco Type: Cigarettes Age Started Using Tobacco: 18; packs per day: 1.5; Cigarettes Per Day: 20; Second Hand Exposure: No; Do You Dip or Chew Tobacco: No; Hx Alcohol Use: Yes Alcohol type: beer Alcohol Intake Frequency: Monthly or Less Hx Substance Use: No Preferred Language: Latvian Communication Ability: Effective Visual Impairment: No Limitations Hearing Ability: Normal Director Data Management Required: No Beliefs That Will Affect Care: None marital status: Current Living Situation: Alone current occupational status: disabled Other Information That Helps Us Care for You: No Feels Safe at Home: Yes Safety Concerns: Feels Safe At This Time Diet Comment: due to symtpoms of N & V caffeine: Yes during the past year weight has: decreased > 10 lbs Dental Care, Regularly: No Physical Activity Frequency: 5-6 Times per Week Seatbelt Use: always Sunscreen Use: Yes Assistive Devices: Glasses Review of Systems Review of Systems: REVIEW OF SYSTEMS: Constitutional: No fever, sweats or chills Eyes: No diplopia, no worsening or blurred vision ENT: normal hearing, no trouble swallowing Respiratory: (+) difficulty taking deep breath, No cough, sputum, dyspnea at rest or on exertion Cardiovascular: No chest pain, tightness or palpitations Abdomen: (+) constipation, No pain, nausea, vomiting, diarrhea Musculoskeletal: (+) as per HPI, right knee pain, NO calf pain, swelling Neurologic: (+) balance problems, No weakness, numbness/tingling, Psychiatric: (+) anxiety, depression Skin: No rash or itch Physical Exam Physical Exam: PHYSICAL EXAM: General: awake, alert, no apparent distress Head: Normocephalic, atraumatic ENT: PERRL, EOMI, no pharyngeal exudate, mucous membranes moist Neuro: AAO x 3, speech clear and appropriate, strength intact bilaterally 5/5, sensation intact and equal all extremities and dermatomes, no pronator drift Chest: equal rise and fall of the chest, no accessory muscle use, no heaves or thrills, scattered wheezes, on 2lNC, Cardiac: Regular rate and rhythm, telemetry reviewed, skin warm dry, cap refill <3 seconds, peripheral pulses, +2 no JVD, no murmur, no edema GI: NABS x 4 quadrants, soft, nontender to palpation, no rebound, guarding or tenderness : Spontaneously voiding, no pain, no CVA tenderness, Extremities: Normal inspection, no peripheral edema or erythema, calfs nontender to palpation Psych: Normal mood and affect MSK: No pain to palpation of pelvis- stable, no hip or leg pain, full ROM, pain with palpation to L1-S1 surrounding muscles not in spasm at this time, no radculopathy Skin: no rash or erythema Results & Data Results & Data ([facility]) Vital Signs (Past 12 Hours) Vital Signs Temp Pulse Resp BP Pulse Ox 03/02/21 13:40 88 19 92 03/02/21 13:30 73 12 93 03/02/21 13:20 69 13 92 03/02/21 13:10 74 21 94 03/02/21 13:02 74 21 93 03/02/21 12:00 76 15 123/72 91 03/02/21 11:50 77 16 96 03/02/21 11:40 90 14 95 03/02/21 11:35 90 16 94 03/02/21 11:10 93 H 20 95 03/02/21 11:08 103 H 16 96 03/02/21 10:15 88 L 03/02/21 10:00 88 20 122/66 92 03/02/21 09:28 75 22 131/70 96 03/02/21 09:15 36.4 C L 97 H 16 111/59 L 90 Laboratory Results Abnormal Labs 03/02/21 03/02/21 03/02/21 10:02 10:02 10:50 RBC 4.08 L Lymph # (Auto) 0.77 L [place] # (Auto) 0.92 H Sodium 127 L Chloride 95 L Urine Protein Trace H Ur Epithelial Cells 10-20 H Diagnostic Findings Lumbar Spine CT 03/02/21 09:53 CT SCAN OF THE ABDOMEN AND PELVIS WITH IV CONTRAST; CT SCAN OF THE LUMBAR SPINE WITH IV CONTRAST CLINICAL HISTORY: Fall. Low back pain. Generalized abdominal pain. COMPARISON STUDY: Abdominal CT dated 02/06/2010. Lumbar spine radiographs dated 02/28/2021. TECHNIQUE: Following the IV administration of 94 cc of Optiray 320, CT scan of the abdomen and pelvis is performed from the lung bases to the proximal femora. Additionally, CT scan of the lumbar spine is performed from the lower thoracic spine to the sacrum. Images for both examinations are reviewed in the axial, sagittal, and coronal planes. IV contrast was administered without complication. A dose lowering technique was utilized adhering to the principles of ALARA. FINDINGS: Lung bases: The heart is normal in size noting a small pericardial effusion. There are coronary artery calcifications. The lung bases are clear. Liver: The contrast-enhanced liver is normal in size, contour, and attenuation. There is no intrahepatic biliary ductal dilatation. The hepatic veins and portal veins are patent. Gallbladder: Unremarkable. Spleen: Normal in size and attenuation. Pancreas: Unremarkable. Adrenal glands: Unremarkable. Kidneys: The contrast enhanced kidneys are normal in size and without hydronephrosis. The kidneys enhance symmetrically. Abdominal vasculature: The abdominal aorta is normal in course and caliber noting moderate atherosclerotic calcification. Bowel: There is moderate colonic diverticulosis without CT evidence of acute diverticulitis. Moderate fecal retention is seen throughout the colon. No bowel obstruction is identified. The appendix is well-visualized and normal. Peritoneum: There is no intraperitoneal free air or abdominal ascites. Lymphadenopathy: None. Pelvic viscera: The bladder is normal as visualized. The uterus is surgically absent. No adnexal lesion is seen. Skeletal structures: See below for dedicated discussion of the lumbar spine. The skeletal structures appear osteopenic. No lytic or blastic lesions are seen. The bony pelvis and proximal femora appear intact. LUMBAR SPINE: There is an acute superior endplate compression fracture of L1 with mild loss of height and surrounding paravertebral edema. No significantly retropulsed fragments are identified. Vertebral body height is otherwise maintained throughout the lumbar spine. There is minimal anterolisthesis at L4- L5. Alignment is otherwise preserved. The transverse and spinous processes are intact. There is no evidence of spondylolysis. Facet arthropathy is seen in the lower lumbar region. There is advanced disc space narrowing with endplate sclerosis at L5-S1. A large posterior disc osteophyte complex is noted at this level within an inferiorly extruded fragment. Only mild degenerative disc space narrowing is seen at the remaining lumbar levels. Broad-based posterior disc bulge is noted at L4-L5. This likely contribute to acquired compromise the central canal and impinges the exiting bilateral L4 nerve roots. The paraspinous soft tissues are within normal limits. IMPRESSION: 1. There is no evidence of solid organ injury in the abdomen or pelvis. 2. There is an acute superior endplate compression fracture of L1 with mild loss of height as detailed above. No retropulsed fragments are identified. 3. No additional acute fracture is seen involving the lumbar spine. 4. Degenerative disc disease at L4-L5 and L5-S1 as above. An inferiorly extruded calcified disc fragment is suggested at L5. 5. Additional findings as above. ACT 112: Negative or not required by law. Electronically signed by: Ariel Cummings M.D. 03/02/2021 11:[address] 03/02/21 09:53 CT thoracic spine w con HISTORY: 60 years-old Female Fall on tuesday, severe back pain, abd pain . Acute severe mid back pain status post fall COMPARISON: CT lumbar spine of same day, lumbar spine radiographs 02/28/2021 and 12/29/2020. TECHNIQUE: Multiple axial CT images of the thoracic spine were obtained following the intravenous administration of 94 mL Optiray 320. A dose lowering technique was used consistent with the principals of ALA. FINDINGS: Acute versus subacute L1 compression deformity with 30% superior endplate height loss is unchanged from the 02/28/2021 exam, however is new from 12/29/2020. No retropulsion. No additional acute fracture or subluxation. Mild multilevel intervertebral disc space narrowing with mild to moderate spondylitic spurring and mild facet arthrosis. The imaged ribs appear intact. The imaged lung still appear clear. No pneumothorax. IMPRESSION: 1. 30% superior endplate L1 compression deformity is new from 12/29/2020 and appears acute. No retropulsion. 2. No acute thoracic spine fracture identified. 3. Degenerative changes as above. ACT 112: Negative or not required by law. The above report was generated using voice recognition software. It may contain grammatical, syntax or spelling errors. Electronically signed by: Booker Rosenberg M.D. 03/02/2021 11:46 AM Abdomen/Pelvis CT 03/02/21 09:55 CT SCAN OF THE ABDOMEN AND PELVIS WITH IV CONTRAST; CT SCAN OF THE LUMBAR SPINE WITH IV CONTRAST CLINICAL HISTORY: Fall. Low back pain. Generalized abdominal pain. COMPARISON STUDY: Abdominal CT dated 02/06/2010. Lumbar spine radiographs dated 02/28/2021. TECHNIQUE: Following the IV administration of 94 cc of Optiray 320, CT scan of the abdomen and pelvis is performed from the lung bases to the proximal femora. Additionally, CT scan of the lumbar spine is performed from the lower thoracic spine to the sacrum. Images for both examinations are reviewed in the axial, sagittal, and coronal planes. IV contrast was administered without complication. A dose lowering technique was utilized adhering to the principles of ALARA. FINDINGS: Lung bases: The heart is normal in size noting a small pericardial effusion. There are coronary artery calcifications. The lung bases are clear. Liver: The contrast-enhanced liver is normal in size, contour, and attenuation. There is no intrahepatic biliary ductal dilatation. The hepatic veins and portal veins are patent. Gallbladder: Unremarkable. Spleen: Normal in size and attenuation. Pancreas: Unremarkable. Adrenal glands: Unremarkable. Kidneys: The contrast enhanced kidneys are normal in size and without hydronephrosis. The kidneys enhance symmetrically. Abdominal vasculature: The abdominal aorta is normal in course and caliber noting moderate atherosclerotic calcification. Bowel: There is moderate colonic diverticulosis without CT evidence of acute diverticulitis. Moderate fecal retention is seen throughout the colon. No bowel obstruction is identified. The appendix is well-visualized and normal. Peritoneum: There is no intraperitoneal free air or abdominal ascites. Lymphadenopathy: None. Pelvic viscera: The bladder is normal as visualized. The uterus is surgically absent. No adnexal lesion is seen. Skeletal structures: See below for dedicated discussion of the lumbar spine. The skeletal structures appear osteopenic. No lytic or blastic lesions are seen. The bony pelvis and proximal femora appear intact. LUMBAR SPINE: There is an acute superior endplate compression fracture of L1 with mild loss of height and surrounding paravertebral edema. No significantly retropulsed fragments are identified. Vertebral body height is otherwise maintained throughout the lumbar spine. There is minimal anterolisthesis at L4- L5. Alignment is otherwise preserved. The transverse and spinous processes are intact. There is no evidence of spondylolysis. Facet arthropathy is seen in the lower lumbar region. There is advanced disc space narrowing with endplate sclerosis at L5-S1. A large posterior disc osteophyte complex is noted at this level within an inferiorly extruded fragment. Only mild degenerative disc space narrowing is seen at the remaining lumbar levels. Broad-based posterior disc bulge is noted at L4-L5. This likely contribute to acquired compromise the central canal and impinges the exiting bilateral L4 nerve roots. The paraspinous soft tissues are within normal limits. IMPRESSION: 1. There is no evidence of solid organ injury in the abdomen or pelvis. 2. There is an acute superior endplate compression fracture of L1 with mild loss of height as detailed above. No retropulsed fragments are identified. 3. No additional acute fracture is seen involving the lumbar spine. 4. Degenerative disc disease at L4-L5 and L5-S1 as above. An inferiorly extruded calcified disc fragment is suggested at L5. 5. Additional findings as above. ACT 112: Negative or not required by law. Electronically signed by: Ariel Cummings M.D. 03/02/2021 11:50 AM Medications Administered Home Medications sucralfate 1 gram tablet (Carafate) 1 g PO ACHS #180 tab 09/02/20 [Rx Confirmed 03/02/21] dicyclomine 20 mg tablet 20 mg PO TID #90 tab 01/09/21 [Rx Confirmed 03/02/21] propylthiouracil 50 mg tablet 50 mg PO BID #90 tab 01/29/21 [Rx Confirmed 03/02/21] albuterol sulfate 90 mcg/actuation aerosol inhaler (Ventolin HFA) 2 puff INHALATION Q6H PRN #18 g 02/16/21 [Rx Confirmed 03/02/21] trazodone 100 mg tablet 100 mg PO HS #90 tab 02/26/21 [Rx Confirmed 03/02/21] amlodipine 5 mg tablet (Norvasc) 5 mg PO BID 02/28/21 [History Confirmed 03/02/21] clonazepam 0.5 mg tablet (Klonopin) 0.5 mg PO HS 02/28/21 [History Confirmed 03/02/21] fluticasone fur. 100 mcg-umeclid 62.5 mcg-vilant 25 mcg inhalat.powder (Trelegy Ellipta) 1 inh INHALATION DAILY PRN 02/28/21 [History Confirmed 03/02/21] hydrochlorothiazide 12.5 mg tablet 12.5 mg PO QAM 02/28/21 [History Confirmed 03/02/21] hydrocodone 5 mg-acetaminophen 325 mg tablet 1 tab PO Q4H PRN #15 tab 02/28/21 [Rx Confirmed 03/02/21] losartan 50 mg tablet (Cozaar) 50 mg PO BID 02/28/21 [History Confirmed 03/02/21] montelukast 10 mg tablet (Singulair) 10 mg PO HS 02/28/21 [History Confirmed 03/02/21] nicotine 14 mg/24 hr daily transdermal patch (Nicoderm CQ) 1 patch TRANSDERMAL DAILY 02/28/21 [History Confirmed 03/02/21] ondansetron 4 mg disintegrating tablet 4 mg PO Q6H PRN #10 tab 02/28/21 [Rx Conf irmed 03/02/21] pantoprazole 40 mg tablet,delayed release (Protonix) 40 mg PO BID 02/28/21 [History Confirmed 03/02/21] sertraline 100 mg tablet (Zoloft) 100 mg PO HS 02/28/21 [History Confirmed 03/02] Active Medications Morphine Sulfate (Morphine Sulfate 4 Mg/Ml 1 Ml Carp\Vial) 4 mg IV Q60M PRN PRN Reason: Pain Stop: 03/16/21 14:27 ECG Additional Comments: Pending on admission Code Status & VTE Plan Code Status CODE: FULL VTE: SCD's, Lovenox 40mg q24 VTE Prophylaxis Plan VTE Prophylaxis will be ordered: Yes Supervising Physician Co-Signing Physician Notes Patient seen and examined, chart reviewed, case discussed withRocky UGALDE and I agree with the assessment and plan as above except as otherwise noted above. General: A&Ox3. NAD. Cooperative. HEENT: Atraumatic, normocephalic. EoM intact, vision grossly intact, PERLAA. Pulm: CTAB A&P. -wheezes, -rales, -rhonchi. Symmetrical chest rise. No increase work of breathing. No respiratory distress. Cardiac: RRR, -mrg. Radial pulses intact and symmetrical. Abdominal: Nontender, nondistended, soft. BS present. Ext: MOTOR: RUE: 5/5 supervisor carbon paper coating strength, finger flexion/extension, interosseus LUE: 5/5 supervisor carbon paper coating strength, finger flexion/extension, interosseus RLE: 5/5 to hip flexion, ankle dorsiflexion/plantarflexion LLE: 5/5 to hip flexion, ankle dorsiflexion/plantarflexion REFLEXES: 2/4 patellar SENSORY: Normal to touch in upper and lower extremities without deficit or asymmetry Spine: TTP at midline ~L1-L4, no paraspinal tenderness or radicular symptoms elicited. All labs and images reviewed 60yo F with admitted for severe back pain. Endplate compression fracture of L1 nd L4-L5 disc buldge appreciated. Orthopaedics consulted, MRI pending. Pt with reduction in pain from 10/10 to 3/10 following steroid tx and IV pain control. Continue prednisone 50mg daily, SSI for hyperglycemia, and pain control with tylenol + hydrocodone + lidocaine patch. NO history of hyperglycemia, suspect steroid induced no hx of DM, A1C pending. Neurovascularly intact, no red flag symptoms on exam. PG Care Time/CCT Total # of Minutes Spent Total Time Spent with Patient: Total time spent is greater than 50% in coordination of care (as documented) at patient's floor/unit and/or counseling patient: Coding Level of Care Code 30461 Initial Inpt Care Lvl 3 Diagnoses Closed compression fracture of L1 vertebra S32.010A Encounter type: initial encounter Acute pain R52 Acute hyponatremia E87.1 Cervical disc disease M50.90 Gastritis K29.70 DJD (degenerative joint disease) of knee M17.10 Depression with anxiety F41.8 Hypertension I10 Irritable bowel disease K58.9 COPD (chronic obstructive pulmonary disease) J44.9 Hyperthyroidism E05.90 (1) Closed compression fracture of L1 vertebra Encounter type: initial encounter Qualified Code(s): S32.010A - Wedge compression fracture of first lumbar vertebra, initial encounter for closed fracture
[2021-03-02] MEDS ORDERED: LORazepam 2 MG/4 ML VIAL ONE (15:30)
--- NOTE | 2021-03-02 16:38 | Magnetic Resonance Report ---
LUMBAR SPINE MRI HISTORY: fall, low back pain TECHNIQUE: Multiplanar multisequence MRI of the lumbar spine was performed without the use of contras t. COMPARISON: Lumbar spine CT 03/02/2021. FINDINGS: For the purpose of the report the L5-S1 disc space will be located on axial image 29 of 31. There is 4 mm of anterolisthesis of L4 on L5. Severe disc space narrowing at L5-S1. Mild disc space n arrowing throughout the remaining lumbar spine. There is an acute mild superior endplate compression fracture at L1, unchanged. This demonstrates up to 10% loss of height anteriorly. No associated retro pulsion. No additional fractures identified within the lumbar spine. Endplate edema at L5-S1 is likel y due to the long-standing degenerative change. The conus terminates at the L1-L2 disc space level. M ild paravertebral edema at the L1 level is likely secondary to the adjacent fracture. Mild motion art ifact. L1-L2: No significant central canal or neural foraminal narrowing. L2-L3: Small broad-based posterior disc bulge without significant central canal or neural foraminal n arrowing. L3-L4: No significant central canal or neural foraminal narrowing. L4-L5: Small broad-based posterior disc bulge with ligamentum and facet hypertrophy resulting in mild -to-moderate central canal and mild to moderate bilateral neural foraminal narrowing. L5-S1: Broad-based posterior disc bulge without significant central canal narrowing. There is moderat e right and mild left neural foraminal narrowing. IMPRESSION: 1. Redemonstration of the acute mild superior endplate compression fracture at L1. No associated retr opulsion. 2. No additional fractures within the lumbar spine. 3. Degenerative changes as described above. ACT 112: Negative or not required by law. Electronically signed by: Diego Claros M.D. 03/02/2021 4:36 PM
[2021-03-02] MEDS ORDERED: ONDANSETRON 4 MG OD TAB PO PRN (18:50)
[2021-03-02] MEDS ORDERED: ALBUTEROL HFA 8 GM INHALER INH PRN (18:50)
[2021-03-02] MEDS ORDERED: NON-FORMULARY MEDICATION (Fluticasone-Umeclidin-Vilanter [Trelegy Ellipta] 100-62.5-25 mcg INH PRN (18:50)
[2021-03-02] MEDS: HYDROCODONE/ACETAMOPHEN 5/325MG TAB PO PRN (19:50)
[2021-03-02] MEDS ORDERED: UMECLIDINIUM BROMIDE 62.5MCG/BLISTER 7 PUFFS/INHALER INH PRN (19:51)
[2021-03-02] MEDS ORDERED: FLUTICASONE/VILANTEROL 100/25MCG 14 PUFFS/INHALER INH PRN (19:51)
[2021-03-02] MEDS: MAGNESIUM HYDROXIDE SUSP 30 ML UDC PO SCH (19:53)
[2021-03-02] MEDS: DOCUSATE SODIUM/SENNA 50/8.6MG TAB PO SCH (21:34)
[2021-03-02] MEDS: POLYETHYLENE (MIRALAX) 17 GM PACK PO SCH (21:34)
[2021-03-02] MEDS: SUCRALFATE 1 GM TAB PO SCH ×2 (21:35→21:41)
[2021-03-02] MEDS: ENOXAPARIN INJ 40 MG/0.4 ML SYR SQ SCH (21:41)
[2021-03-02] MEDS: DICYCLOMINE HCL 20 MG TAB PO SCH (21:42)
[2021-03-02] MEDS: traZODone HCL 100 MG TAB PO SCH (21:42)
[2021-03-02] MEDS: MONTELUKAST SODIUM 10 MG TABLET PO SCH (21:42)
[2021-03-02] MEDS: SERTRALINE HCL 100 MG TABLET PO SCH (21:42)
[2021-03-02] MEDS: clonazePAM 0.5 MG TAB PO SCH (21:47)
[2021-03-02] MEDS ORDERED: GLUCOSE 40% GEL 15 GM TUBE PO PRN (21:48)
[2021-03-02] MEDS ORDERED: DEXTROSE 50% 50 ML SYRINGE IV PRN (21:48)
[2021-03-02] MEDS: amLODIPine BESYLATE 5 MG TAB PO SCH (21:48)
[2021-03-02] MEDS ORDERED: GLUCAGON FOR INJ 1 MG VIAL SQ PRN (21:48)
[2021-03-02] MEDS ORDERED: CARBOHYDRATES FOR HYPOGLYCEMIA PO PRN (21:48)
[2021-03-02] MEDS ORDERED: GLUCOSE 10 TABS/TUBE PO PRN (21:48)
[2021-03-02] MEDS: PANTOprazole 40 MG TAB PO SCH (21:50)
[2021-03-02] MEDS: propylthiouraciL 50 MG TAB PO SCH (21:51)
[2021-03-02] MEDS: LOSARTAN POTASSIUM 50 MG TAB PO SCH (21:51)
[2021-03-02] MEDS: LIDOCAINE 5% 1 PATCH TD SCH (21:51)
[2021-03-02] MEDS: LACTATED RINGER'S 1,000 ML IV SCH (22:08)
[2021-03-02] MEDS: INSULIN ASPART 100 UNITS/ML 3 ML PEN SC SCH (23:58)
[2021-03-03] MEDS: HYDROCODONE/ACETAMOPHEN 5/325MG TAB PO PRN (02:51)
[2021-03-03] MEDS: HYDROmorphone INJ 0.5 MG/0.5 ML SYR IV PRN ×2 (07:35→10:17)
[2021-03-03] MEDS: SUCRALFATE 1 GM TAB PO SCH ×4 (08:14→20:24)
[2021-03-03 08:17] LABS: Hematocrit (blood only) 36.6 % (37-47); Hemoglobin 12.5 g/dL (12.0-16.0); Immature Granulocytes # (auto) 0.01 K/uL (0.00-0.02); Immature Granulocytes % (auto) 0.2 %; Lymphocytes # (auto) 0.75 K/uL (1.2-3.4); Lymphocytes % (auto) 11.4 %; Mean Corpuscular Hgb Conc 34.2 g/dL (32-36); Mean Corpuscular Volume 90.8 fL (80-100); Mean Platelet Volume 9.4 fL (7.4-10.4); Monocytes # (auto) 0.78 K/uL (0.11-0.59); Monocytes % (auto) 11.8 %; Neutrophils # (auto) 5.05 K/uL (1.4-6.5); Neutrophils % (auto) 76.6 %; Platelet Count 179 K/uL (130-400); RDW Coefficient of Variation 11.8 % (11.5-14.5); RDW Standard Deviation 39.4 fL (36.4-46.3); Red Blood Count 4.03 M/uL (4.2-5.4); White Blood Count 6.59 K/uL (4.8-10.8)
--- NOTE | 2021-03-03 08:24 | Orthopedic Consultation ---
Date of Consultation March 03, 2021 Assessment & Plan (1) Closed compression fracture of L1 vertebra: MRI of the lumbar spine does demonstrate evidence of acute L1 compression fracture. There is spondylolisthesis L4-L5 with significant subarticular stenosis. There is evidence of very small far lateral disc herniation L3-L4 on the right. I did have a lengthy discussion today with the patient regarding her imaging and clinical presentation. She may ultimately be a candidate for surger y. My first course of action would be addressing the fracture and pain emanating from L1. An L1 kyphoplasty would be reasonable at this time. We would continue to observe the other issues of the lumbar spine. I will reassess her tomorrow determine progress and make further recommendations. History of Present Illness Reason for Consultation: Back pain Attending Physician: Bautista Salazar MD History of Present Illness This is a 60-year-old female who presents with acute on chronic back pain after fall. She does have evidence of an acute L1 compression fracture. She describes pain in the axial lumbar spine rating into the buttocks and occasionally down her legs. The symptoms were present prior to her fall but markedly exacerbated. She denies any gross weakness to lower extremities. Denies any loss of bowel bladder control at this time. Allergies Allergy/AdvReac Type Severity Reaction Status Date / Time amitriptyline Allergy Intermediate Headache Verified 03/02/21 10:56 Penicillins Allergy Unknown Unknown Verified 03/02/21 10:56 codeine AdvReac Mild Vomiting Verified 03/02/21 10:56 Home Medications Medication Instructions Recorded Confirmed Type sucralfate 1 gram tablet (Carafate) 1 g PO ACHS #180 tab 09/02/20 03/02/21 Rx dicyclomine 20 mg tablet 20 mg PO TID #90 tab 01/09/21 03/02/21 Rx propylthiouracil 50 mg tablet 50 mg PO BID #90 tab 01/29/21 03/02/21 Rx albuterol sulfate 90 mcg/actuation 2 puff INHALATION Q6H PRN #18 g 02/16/21 03/02/21 Rx aerosol inhaler (Ventolin HFA) trazodone 100 mg tablet 100 mg PO HS #90 tab 02/26/21 03/02/21 Rx amlodipine 5 mg tablet (Norvasc) 5 mg PO BID 02/28/21 03/02/21 History clonazepam 0.5 mg tablet (Klonopin) 0.5 mg PO HS 02/28/21 03/02/21 History fluticasone fur. 100 mcg-umeclid 1 inh INHALATION DAILY PRN 02/28/21 03/02/21 History 62.5 mcg-vilant 25 mcg inhalat.powder (Trelegy Ellipta) hydrochlorothiazide 12.5 mg tablet 12.5 mg PO QAM 02/28/21 03/02/21 History hydrocodone 5 mg-acetaminophen 325 1 tab PO Q4H PRN #15 tab 02/28/21 03/02/21 Rx mg tablet losartan 50 mg tablet (Cozaar) 50 mg PO BID 02/28/21 03/02/21 History montelukast 10 mg tablet 10 mg PO HS 02/28/21 03/02/21 History (Singulair) nicotine 14 mg/24 hr daily 1 patch TRANSDERMAL DAILY 02/28/21 03/02/21 History transdermal patch (Nicoderm CQ) ondansetron 4 mg disintegrating 4 mg PO Q6H PRN #10 tab 02/28/21 03/02/21 Rx tablet pantoprazole 40 mg tablet,delayed 40 mg PO BID 02/28/21 03/02/21 History release (Protonix) sertraline 100 mg tablet (Zoloft) 100 mg PO HS 02/28/21 03/02/21 History Patient History Medical History Cervical disc disease Chronic diarrhea Depression with anxiety Hepatic steatosis patient unaware noted by ultrasound 07/10/2020 Hypertension Irritable bowel disease Ovarian cancer (~09/2019) had hysterectomy Tobacco dependence due to cigarettes .5-1 pack per day since age 18 Surgical History H/O sinus surgery Status post hysterectomy Status post right knee replacement Status post tubal ligation Family History Mother Heart disease Father Heart disease Parkinsons Myocardial infarction Denies family history of Ovarian cancer Prostate cancer Breast cancer Colorectal cancer Social History Smoking Status: Former smoker Tobacco Type: Cigarettes Age Started Using Tobacco: 18; packs per day: 1.5; Cigarettes Per Day: 20; Second Hand Exposure: No; Do You Dip or Chew Tobacco: No; Hx Alcohol Use: Yes Alcohol type: beer Alcohol Intake Frequency: Monthly or Less Hx Substance Use: No Preferred Language: [place] Communication Ability: Effective Visual Impairment: No Limitations Hearing Ability: Normal Lining Maker Required: No Beliefs That Will Affect Care: None marital status: Current Living Situation: Alone current occupational status: disabled Other Information That Helps Us Care for You: No Feels Safe at Home: Yes Safety Concerns: Feels Safe At This Time Diet Comment: due to symtpoms of N & V caffeine: Yes during the past year weight has: decreased > 10 lbs Dental Care, Regularly: No Physical Activity Frequency: 5-6 Times per Week Seatbelt Use: always Sunscreen Use: Yes Assistive Devices: Walker Physical Exam Physical Exam: On exam she is in bed. She exhibits reasonable strength testing lower extremities. She does have pain to palpation percussion of the thoracolumbar region. Results & Data ([facility]) Vital Signs (Past 12 Hours) Vital Signs Temp Pulse Resp BP Pulse Ox 03/03/21 07:20 36.7 C 74 17 93 03/02/21 22:39 36.6 C 62 16 93/56 L 90
[2021-03-03 08:42] LABS: BUN Creatinine Ratio 17.9 (10-20); Calcium 8.9 mg/dl (8.5-10.1); Creatinine Clr Calc Pharmacy 78.8 ml/min; Est GFR (Non-African American) 89.8 ml/min; Potassium 3.8 mmol/L (3.5-5.1)
[2021-03-03] MEDS: hydroCHLOROthiazide 25 MG TAB PO SCH (08:52)
[2021-03-03] MEDS: POLYETHYLENE (MIRALAX) 17 GM PACK PO SCH (08:52)
[2021-03-03] MEDS: DICYCLOMINE HCL 20 MG TAB PO SCH ×3 (08:53→20:19)
[2021-03-03] MEDS: MAGNESIUM HYDROXIDE SUSP 30 ML UDC PO SCH (08:53)
[2021-03-03] MEDS: LOSARTAN POTASSIUM 50 MG TAB PO SCH ×2 (08:53→20:21)
[2021-03-03] MEDS: PANTOprazole 40 MG TAB PO SCH ×2 (08:53→20:22)
[2021-03-03] MEDS: amLODIPine BESYLATE 5 MG TAB PO SCH ×2 (08:53→20:16)
[2021-03-03] MEDS: DOCUSATE SODIUM/SENNA 50/8.6MG TAB PO SCH (08:53)
[2021-03-03] MEDS: predniSONE 50 MG TAB PO SCH (08:53)
[2021-03-03] MEDS: propylthiouraciL 50 MG TAB PO SCH ×2 (08:54→20:23)
[2021-03-03] MEDS: NICOTINE 14 MG/24 HR PATCH TD SCH (08:55)
[2021-03-03] MEDS: INSULIN ASPART 100 UNITS/ML 3 ML PEN SC SCH ×4 (09:05→21:41)
[2021-03-03 09:12] LABS: Estimated Average Glucose 105 mg/dl; Hemoglobin A1C 5.3 % (4.5-5.6)
[2021-03-03] MEDS: LACTATED RINGER'S 1,000 ML IV SCH (10:04)
[2021-03-03] MEDS ORDERED: KETOROLAC 30 MG/ML VIAL IV ONE (10:36)
[2021-03-03] MEDS: CALCITONIN SALMON NA 200 IU/AC 3.7 ML BTL SCH (11:21)
[2021-03-03] MEDS ORDERED: NALOXONE HCL 0.4 MG/1 ML VIAL/CARP IV PRN (12:41)
[2021-03-03] MEDS ORDERED: HYDROmorphone PCA 30 MG/30 ML IV PRN (12:41)
[2021-03-03] MEDS ORDERED: HYDROmorphone Bolus from PCA IV PRN (12:41)
--- NOTE | 2021-03-03 12:44 | Hospitalist Progress Note ---
Date of Service March 03, 2021 Assessment & Plan (1) Closed compression fracture of L1 vertebra: Plan: Severe pain due to such. Will change prn IV dilaudid and place on [employer] dilaudid; start with lock-out 20min, demand dose 0.1mg. Toradol 30mg IV x 1 now. Add heating pad. Cont prednisone. Cont lidoderm patch. Add calcitonin nasal spray. Add voltaren gel 4gm qid to back. Appreciate Dr Pimentel's consult - may need kyphoplasty if pain is refractory. NPO after MN tonight for possibility of such. 25-OH vit D level earlier this year wnl. L1 compression fracture likely osteoporotic in nature. (2) Acute hyponatremia: Plan: Improved today. HCTZ use and poor oral intake leading up to the admission the likely culprits. Stop IV fluids later today. Repeat BMP am. (3) Cervical disc disease: Plan: stable no issues (4) Gastritis: Plan: Continue PPI and Carafate (5) COPD (chronic obstructive pulmonary disease): Plan: Continue Trelegy or equivalent Continue Albuterol 90mcg HFA q6 prn 2 puffs (6) DJD (degenerative joint disease) of knee: Plan: meds for #1 will help this (7) Depression with anxiety: Plan: cont home meds (8) Hypertension: Plan: Continue Amlodipine, HCTZ, and Losartan Most readings acceptable (9) Irritable bowel disease: Plan: may be cause of mild tenderness on exam today cont bentyl will need bowel regimen due to heavy narcotic use (10) Hyperthyroidism: Plan: Continue PTU 50 mg PO BID TSH on 02/28 wnl Admission and Anticipated Discharge Date Admission Date: March 02, 2021 Subjective patient reports severe back pain - much, much worse with standing and ambulation. at rest pain is relatively controlled. with standing she does get radiating pain into the buttocks and b/l legs. she has been feeling dizzy w/ standing. she also noticed "gnats / specks in my eyes this am." the visual disturbance was b/l eyes. no migraine headache. denies visual loss. no double vision. denies dyspnea. she does have pain that goes into the anterior chest region when the "pain is severe." Review of Systems Constitutional: no fever and no chills Respiratory: + cough; no dyspnea Cardiovascular: as per Subjective / HPI Gastrointestinal: no bowel incontinence Genitourinary: no urinary incontinence Physical Exam Physical Exam: gen - very uncomfortable, borderline crying at times mouth - MMM eyes - visual still full by direct confrontation; PERRL; EOMI neck - no JVD heart - RRR, s1 s2 lungs - b/l wheezes abd - soft ND slightly tender left abdomen (only has tenderness if I palpate) back - exquisite tenderness to upper lumbar spine segments with paraspinal tenderness b/l neuro - strength 5/5 b/l legs ext - no edema pulses 2+ b/l Results & Data Results & Data ([facility]) Vital Signs (Past 12 Hours) Vital Signs Temp Pulse Resp BP Pulse Ox 03/03/21 08:58 90 132/71 92 03/03/21 07:20 36.7 C 74 17 93 Laboratory Results Na 133 this am creatinine wnl 25-OH vit D level 30 in Jul 2020 Diagnostic Findings Lumbar Spine CT 03/02/21 09:53 CT SCAN OF THE ABDOMEN AND PELVIS WITH IV CONTRAST; CT SCAN OF THE LUMBAR SPINE WITH IV CONTRAST CLINICAL HISTORY: Fall. Low back pain. Generalized abdominal pain. COMPARISON STUDY: Abdominal CT dated 02/06/2010. Lumbar spine radiographs dated 02/28/2021. TECHNIQUE: Following the IV administration of 94 cc of Optiray 320, CT scan of the abdomen and pelvis is performed from the lung bases to the proximal femora. Additionally, CT scan of the lumbar spine is performed from the lower thoracic spine to the sacrum. Images for both examinations are reviewed in the axial, sagittal, and coronal planes. IV contrast was administered without complication. A dose lowering technique was utilized adhering to the principles of ALARA. FINDINGS: Lung bases: The heart is normal in size noting a small pericardial effusion. There are coronary artery calcifications. The lung bases are clear. Liver: The contrast-enhanced liver is normal in size, contour, and attenuation. There is no intrahepatic biliary ductal dilatation. The hepatic veins and portal veins are patent. Gallbladder: Unremarkable. Spleen: Normal in size and attenuation. Pancreas: Unremarkable. Adrenal glands: Unremarkable. Kidneys: The contrast enhanced kidneys are normal in size and without hydronephrosis. The kidneys enhance symmetrically. Abdominal vasculature: The abdominal aorta is normal in course and caliber noting moderate atherosclerotic calcification. Bowel: There is moderate colonic diverticulosis without CT evidence of acute diverticulitis. Moderate fecal retention is seen throughout the colon. No bowel obstruction is identified. The appendix is well-visualized and normal. Peritoneum: There is no intraperitoneal free air or abdominal ascites. Lymphadenopathy: None. Pelvic viscera: The bladder is normal as visualized. The uterus is surgically absent. No adnexal lesion is seen. Skeletal structures: See below for dedicated discussion of the lumbar spine. The skeletal structures appear osteopenic. No lytic or blastic lesions are seen. The bony pelvis and proximal femora appear intact. LUMBAR SPINE: There is an acute superior endplate compression fracture of L1 with mild loss of height and surrounding paravertebral edema. No significantly retropulsed fragments are identified. Vertebral body height is otherwise maintained throughout the lumbar spine. There is minimal anterolisthesis at L4- L5. Alignment is otherwise preserved. The transverse and spinous processes are intact. There is no evidence of spondylolysis. Facet arthropathy is seen in the lower lumbar region. There is advanced disc space narrowing with endplate sclerosis at L5-S1. A large posterior disc osteophyte complex is noted at this level within an inferiorly extruded fragment. Only mild degenerative disc space narrowing is seen at the remaining lumbar levels. Broad-based posterior disc bulge is noted at L4-L5. This likely contribute to acquired compromise the central canal and impinges the exiting bilateral L4 nerve roots. The paraspinous soft tissues are within normal limits. IMPRESSION: 1. There is no evidence of solid organ injury in the abdomen or pelvis. 2. There is an acute superior endplate compression fracture of L1 with mild loss of height as detailed above. No retropulsed fragments are identified. 3. No additional acute fracture is seen involving the lumbar spine. 4. Degenerative disc disease at L4-L5 and L5-S1 as above. An inferiorly extruded calcified disc fragment is suggested at L5. 5. Additional findings as above. ACT 112: Negative or not required by law. Electronically signed by: Ariel Cummings M.D. 03/02/2021 11:[address] 03/02/21 09:53 CT thoracic spine w con HISTORY: 60 years-old Female Fall on tuesday, severe back pain, abd pain . Acute severe mid back pain status post fall COMPARISON: CT lumbar spine of same day, lumbar spine radiographs 02/28/2021 and 12/29/2020. TECHNIQUE: Multiple axial CT images of the thoracic spine were obtained following the intravenous administration of 94 mL Optiray 320. A dose lowering technique was used consistent with the principals of ALARA. FINDINGS: Acute versus subacute L1 compression deformity with 30% superior endplate height loss is unchanged from the 02/28/2021 exam, however is new from 12/29/2020. No retropulsion. No additional acute fracture or subluxation. Mild multilevel intervertebral disc space narrowing with mild to moderate spondylitic spurring and mild facet arthrosis. The imaged ribs appear intact. The imaged lung still appear clear. No pneumothorax. IMPRESSION: 1. 30% superior endplate L1 compression deformity is new from 12/29/2020 and appears acute. No retropulsion. 2. No acute thoracic spine fracture identified. 3. Degenerative changes as above. ACT 112: Negative or not required by law. The above report was generated using voice recognition software. It may contain grammatical, syntax or spelling errors. Electronically signed by: Booker Rosenberg M.D. 03/02/2021 11:46 AM Abdomen/Pelvis CT 03/02/21 09:55 CT SCAN OF THE ABDOMEN AND PELVIS WITH IV CONTRAST; CT SCAN OF THE LUMBAR SPINE WITH IV CONTRAST CLINICAL HISTORY: Fall. Low back pain. Generalized abdominal pain. COMPARISON STUDY: Abdominal CT dated 02/06/2010. Lumbar spine radiographs dated 02/28/2021. TECHNIQUE: Following the IV administration of 94 cc of Optiray 320, CT scan of the abdomen and pelvis is performed from the lung bases to the proximal femora. Additionally, CT scan of the lumbar spine is performed from the lower thoracic spine to the sacrum. Images for both examinations are reviewed in the axial, sagittal, and coronal planes. IV contrast was administered without complication. A dose lowering technique was utilized adhering to the principles of ALARA. FINDINGS: Lung bases: The heart is normal in size noting a small pericardial effusion. There are coronary artery calcifications. The lung bases are clear. Liver: The contrast-enhanced liver is normal in size, contour, and attenuation. There is no intrahepatic biliary ductal dilatation. The hepatic veins and portal veins are patent. Gallbladder: Unremarkable. Spleen: Normal in size and attenuation. Pancreas: Unremarkable. Adrenal glands: Unremarkable. Kidneys: The contrast enhanced kidneys are normal in size and without hydronephrosis. The kidneys enhance symmetrically. Abdominal vasculature: The abdominal aorta is normal in course and caliber noting moderate atherosclerotic calcification. Bowel: There is moderate colonic diverticulosis without CT evidence of acute diverticulitis. Moderate fecal retention is seen throughout the colon. No bowel obstruction is identified. The appendix is well-visualized and normal. Peritoneum: There is no intraperitoneal free air or abdominal ascites. Lymphadenopathy: None. Pelvic viscera: The bladder is normal as visualized. The uterus is surgically absent. No adnexal lesion is seen. Skeletal structures: See below for dedicated discussion of the lumbar spine. The skeletal structures appear osteopenic. No lytic or blastic lesions are seen. The bony pelvis and proximal femora appear intact. LUMBAR SPINE: There is an acute superior endplate compression fracture of L1 with mild loss of height and surrounding paravertebral edema. No significantly r etropulsed fragments are identified. Vertebral body height is otherwise maintained throughout the lumbar spine. There is minimal anterolisthesis at L4- L5. Alignment is otherwise preserved. The transverse and spinous processes are intact. There is no evidence of spondylolysis. Facet arthropathy is seen in the lower lumbar region. There is advanced disc space narrowing with endplate sclerosis at L5-S1. A large posterior disc osteophyte complex is noted at this level within an inferiorly extruded fragment. Only mild degenerative disc space narrowing is seen at the remaining lumbar levels. Broad-based posterior disc bulge is noted at L4-L5. This likely contribute to acquired compromise the central canal and impinges the exiting bilateral L4 nerve roots. The paraspinous soft tissues are within normal limits. IMPRESSION: 1. There is no evidence of solid organ injury in the abdomen or pelvis. 2. There is an acute superior endplate compression fracture of L1 with mild loss of height as detailed above. No retropulsed fragments are identified. 3. No additional acute fracture is seen involving the lumbar spine. 4. Degenerative disc disease at L4-L5 and L5-S1 as above. An inferiorly extruded calcified disc fragment is suggested at L5. 5. Additional findings as above. ACT 112: Negative or not required by law. Electronically signed by: Ariel Cummings M.D. 03/02/2021 11:50 AM Lumbar Spine MRI 03/02/21 12:10 LUMBAR SPINE MRI HISTORY: fall, low back pain TECHNIQUE: Multiplanar multisequence MRI of the lumbar spine was performed without the use of contrast. COMPARISON: Lumbar spine CT 03/02/2021. FINDINGS: For the purpose of the report the L5-S1 disc space will be located on axial image 29 of 31. There is 4 mm of anterolisthesis of L4 on L5. Severe disc space narrowing at L5- S1. Mild disc space narrowing throughout the remaining lumbar spine. There is an acute mild superior endplate compression fracture at L1, unchanged. This demonstrates up to 10% loss of height anteriorly. No associated retropulsion. No additional fractures identified within the lumbar spine. Endplate edema at L5-S1 is likely due to the long-standing degenerative change. The conus terminates at the L1-L2 disc space level. Mild paravertebral edema at the L1 level is likely secondary to the adjacent fracture. Mild motion artifact. L1-L2: No significant central canal or neural foraminal narrowing. L2-L3: Small broad-based posterior disc bulge without significant central canal or neural foraminal narrowing. L3-L4: No significant central canal or neural foraminal narrowing. L4-L5: Small broad-based posterior disc bulge with ligamentum and facet hypertrophy resulting in [id number] central canal and mild to moderate bilateral neural foraminal narrowing. L5-S1: Broad-based posterior disc bulge without significant central canal narrowing. There is moderate right and mild left neural foraminal narrowing. IMPRESSION: 1. Redemonstration of the acute mild superior endplate compression fracture at L1. No associated retropulsion. 2. No additional fractures within the lumbar spine. 3. Degenerative changes as described above. ACT 112: Negative or not required by law. Electronically signed by: Diego Claros M.D. 03/02/2021 4:36 PM PG Care Time/CCT Total # of Minutes Spent Total Time Spent with Patient: Total time spent is greater than 50% in coordination of care (as documented) at patient's floor/unit and/or counseling patient: Coding Level of Care Code 55798 Subseq Hosp Care Lvl 3 Diagnoses Closed compression fracture of L1 vertebra S32.010A Acute hyponatremia E87.1 Cervical disc disease M50.90 Gastritis K29.70 COPD (chronic obstructive pulmonary disease) J44.9 DJD (degenerative joint disease) of knee M17.10 Depression with anxiety F41.8 Hypertension I10 Irritable bowel disease K58.9 Hyperthyroidism E05.90
[2021-03-03] MEDS: SODIUM CHLORIDE 0.9% 1000ML 1,000 ML IV SCH (13:05)
[2021-03-03] MEDS: DICLOFENAC SOD 1% GEL 100 GM TUBE EXT SCH ×3 (13:52→20:17)
--- NOTE | 2021-03-03 15:29 | Electrocardiogram Report ---
Test Reason : Blood Pressure : / mmHG Vent. Rate : 081 BPM Atrial Rate : 081 BPM P-R Int : 140 ms QRS Dur : 082 ms QT Int : 392 ms P-R-T Axes : 077 068 068 degrees QTc Int : 455 ms Normal sinus rhythm Possible Left atrial enlargement Borderline ECG When compared with ECG of 20-AUG-2020 16:13, Premature atrial complexes are no longer Present QT has shortened Confirmed by Cordell Schmidt ([id number]) on 03/03/2021 3:28:46 PM Referred By: REFERRED SELF Confirmed By:Dg Schmidt
[2021-03-03] MEDS: ENOXAPARIN INJ 40 MG/0.4 ML SYR SQ SCH (17:52)
[2021-03-03] MEDS: clonazePAM 0.5 MG TAB PO SCH (20:15)
[2021-03-03] MEDS: LIDOCAINE 5% 1 PATCH TD SCH (20:20)
[2021-03-03] MEDS: MONTELUKAST SODIUM 10 MG TABLET PO SCH (20:21)
[2021-03-03] MEDS: SERTRALINE HCL 100 MG TABLET PO SCH (20:23)
[2021-03-03] MEDS: traZODone HCL 100 MG TAB PO SCH (20:25)
[2021-03-04 06:29] LABS: BUN Creatinine Ratio 21.4 (10-20); Calcium 9.3 mg/dl (8.5-10.1); Creatinine Clr Calc Pharmacy 59.7 ml/min; Est GFR (African American) 74.4 ml/min; Est GFR (Non-African American) 64.2 ml/min; Potassium 4.1 mmol/L (3.5-5.1)
[2021-03-04] MEDS: INSULIN ASPART 100 UNITS/ML 3 ML PEN SC SCH ×4 (08:03→21:21)
[2021-03-04] MEDS: NICOTINE 14 MG/24 HR PATCH TD SCH (08:05)
[2021-03-04] MEDS: DICLOFENAC SOD 1% GEL 100 GM TUBE EXT SCH ×4 (08:11→21:27)
[2021-03-04] MEDS: SUCRALFATE 1 GM TAB PO SCH ×4 (08:12→21:24)
[2021-03-04] MEDS: hydroCHLOROthiazide 25 MG TAB PO SCH (08:12)
[2021-03-04] MEDS: predniSONE 50 MG TAB PO SCH (08:13)
[2021-03-04] MEDS: LOSARTAN POTASSIUM 50 MG TAB PO SCH ×2 (08:14→21:26)
[2021-03-04] MEDS: POLYETHYLENE (MIRALAX) 17 GM PACK PO SCH (08:14)
[2021-03-04] MEDS: PANTOprazole 40 MG TAB PO SCH ×2 (08:14→21:25)
[2021-03-04] MEDS: propylthiouraciL 50 MG TAB PO SCH ×2 (08:14→21:29)
[2021-03-04] MEDS ORDERED: Nursing to Pharmacy Communication SCH ×3 (08:15→23:15)
[2021-03-04] MEDS: DICYCLOMINE HCL 20 MG TAB PO SCH ×3 (08:15→21:29)
[2021-03-04] MEDS: CALCITONIN SALMON NA 200 IU/AC 3.7 ML BTL SCH (08:15)
[2021-03-04] MEDS: DOCUSATE SODIUM/SENNA 50/8.6MG TAB PO SCH (08:16)
[2021-03-04] MEDS: amLODIPine BESYLATE 5 MG TAB PO SCH ×2 (08:16→21:26)
[2021-03-04] MEDS: MAGNESIUM HYDROXIDE SUSP 30 ML UDC PO SCH (08:22)
[2021-03-04] MEDS ORDERED: INSULIN ASPART 100 UNITS/ML 3 ML PEN SC SCH (12:00)
[2021-03-04] MEDS: SODIUM CHLORIDE 0.9% 1000ML 1,000 ML IV SCH (12:09)
--- NOTE | 2021-03-04 12:36 | Orthopedic Progress Note ---
Date of Service March 04, 2021 Assessment & Plan (1) Closed compression fracture of L1 vertebra: Plan: At this time we had lengthy discussion regarding her pain and limitations. This point she is failing to respond with bedrest and pain medication we will are going to move forward with an L1 kyphoplasty. She will be made n.p.o. after midnight we will have surgery tomorrow. Admission and Anticipated Discharge Date Admission Date: March 02, 2021 Subjective Patient continues to have some significant axial back pain not responding to rest and pain medication. Physical Exam Physical Exam: Patient is in obvious distress but neurologically intact to testing lower extremities. Results & Data ([facility]) Vital Signs (Past 12 Hours) Vital Signs Temp Pulse Pulse Resp BP Pulse Ox 03/04/21 11:29 36.5 C 57 L 13 127/72 96 03/04/21 08:09 36.9 C 83 17 173/92 H 95 03/04/21 02:35 36.5 C 60 15 132/75 93
[2021-03-04] MEDS: ENOXAPARIN INJ 40 MG/0.4 ML SYR SQ SCH ×3 (17:50→18:55)
--- NOTE | 2021-03-04 18:37 | Anesthesiology Consultation ---
Date of Service March 04, 2021 Assessment & Plan (1) Encounter for pre-operative examination: Chart Review Chart Review: Acceptable Risk for Surgery and Patient NOT seen in Pre Admission Testing Consults Requested none History Surgery Operation Date: 03/05/21 12:15 Proposed Procedures p L1 Kyphoplasty - Js Pimentel DO Height/Weight Height: 5 ft 7 in Weight: 64 kg Allergies Allergy/AdvReac Type Severity Reaction Status Date / Time amitriptyline Allergy Intermediate Headache Verified 03/02/21 10:56 Penicillins Allergy Unknown Unknown Verified 03/02/21 10:56 codeine AdvReac Mild Vomiting Verified 03/02/21 10:56 Medications Home Medications Medication Instructions Recorded Confirmed Last Taken sucralfate 1 gram tablet (Carafate) 1 g PO ACHS #180 tab 09/02/20 03/02/21 03/01/21 dicyclomine 20 mg tablet 20 mg PO TID #90 tab 01/09/21 03/02/21 03/01/21 propylthiouracil 50 mg tablet 50 mg PO BID #90 tab 01/29/21 03/02/21 03/01/21 albuterol sulfate 90 mcg/actuation 2 puff INHALATION Q6H PRN #18 g 02/16/21 03/02/21 02/27/21 aerosol inhaler (Ventolin HFA) trazodone 100 mg tablet 100 mg PO HS #90 tab 02/26/21 03/02/21 03/01/21 amlodipine 5 mg tablet (Norvasc) 5 mg PO BID 02/28/21 03/02/21 03/01/21 clonazepam 0.5 mg tablet (Klonopin) 0.5 mg PO HS 02/28/21 03/02/21 03/01/21 fluticasone fur. 100 mcg-umeclid 1 inh INHALATION DAILY PRN 02/28/21 03/02/21 03/01/21 62.5 mcg-vilant 25 mcg inhalat.powder (Trelegy Ellipta) hydrochlorothiazide 12.5 mg tablet 12.5 mg PO QAM 02/28/21 03/02/21 03/01/21 hydrocodone 5 mg-acetaminophen 325 1 tab PO Q4H PRN #15 tab 02/28/21 03/02/21 Unknown mg tablet losartan 50 mg tablet (Cozaar) 50 mg PO BID 02/28/21 03/02/21 03/01/21 montelukast 10 mg tablet 10 mg PO HS 02/28/21 03/02/21 03/01/21 (Singulair) nicotine 14 mg/24 hr daily 1 patch TRANSDERMAL DAILY 02/28/21 03/02/21 Unknown transdermal patch (Nicoderm CQ) ondansetron 4 mg disintegrating 4 mg PO Q6H PRN #10 tab 02/28/21 03/02/21 03/01/21 tablet pantoprazole 40 mg tablet,delayed 40 mg PO BID 02/28/21 03/02/21 03/01/21 release (Protonix) sertraline 100 mg tablet (Zoloft) 100 mg PO HS 02/28/21 03/02/21 03/01/21 Active Medications Generic Name Dose Route Start Last Admin Trade Name Freq PRN Reason Stop Dose Admin Hydrocodone Bitart/Acetaminophen 2 tab 03/02/21 18:50 03/03/21 02:51 Hydrocodone/Acetamophen 5/325mg Tab PO 03/16/21 18:49 2 tab Q4H PRN Administration Moderate Pain Amlodipine Besylate 5 mg 03/02/21 21:00 03/04/21 08:16 Amlodipine Besylate 5 Mg Tab PO 04/01/21 20:59 5 mg BID AMARILYS Administration Calcitonin [place] 1 sprays 03/03/21 10:45 03/04/21 08:15 Calcitonin [place] Na 200 Iu/Ac 3.7 Ml Btl NA 04/02/21 10:44 1 sprays DAILY AMARILYS Administration Clonazepam 0.5 mg 03/02/21 21:00 03/03/21 20:15 Clonazepam 0.5 Mg Tab PO 04/01/21 20:59 0.5 mg HS AMARILYS Administration Diclofenac Sodium 4 gm 03/03/21 13:00 03/04/21 17:49 Diclofenac Sod 1% Gel 100 Gm Tube EXT 04/02/21 12:59 Not Given QID AMARILYS Dicyclomine HCl 20 mg 03/02/21 21:00 03/04/21 13:35 Dicyclomine Hcl 20 Mg Tab PO 04/01/21 20:59 20 mg TID AMARILYS Administration Enoxaparin Sodium 40 mg 03/02/21 18:50 03/03/21 17:52 Enoxaparin Inj 40 Mg/0.4 Ml Syr SQ 04/01/21 18:49 40 mg Q24H AMARILYS Administration Hydrochlorothiazide 12.5 mg 03/03/21 09:00 03/04/21 08:12 Hydrochlorothiazide 25 Mg Tab PO 04/02/21 08:59 12.5 mg QAM AMARILYS Administration Hydromorphone HCl 30 mg 03/03/21 12:41 03/03/21 14:24 Hydromorphone Eap Counselor 30 Mg/30 Ml IV 03/17/21 12:40 30 mg PRN PRN Administration EDUCATIONAL/DEVELOPMENT ASSISTANT Pain Titration Protocol Sodium Chloride 1,000 mls @ 15 mls/hr 03/03/21 12:45 03/04/21 12:09 Nss 1000ml IV 03/17/21 12:42 15 mls/hr .Q24H AMARILYS Administration Insulin Aspart 0 units 03/04/21 11:30 03/04/21 17:51 Insulin Aspart 100 Units/Ml 3 Ml Pen SC 04/03/21 11:29 3 units ACHS AMARILYS Administration Lidocaine 1 patch 03/02/21 21:00 03/03/21 20:20 Lidocaine 5% 1 Patch TD 04/01/21 20:59 1 patch HS AMARILYS Administration Losartan Potassium 50 mg 03/02/21 21:00 03/04/21 08:14 Losartan Potassium 50 Mg Tab PO 04/01/21 20:59 50 mg BID AMARILYS Administration Magnesium Hydroxide 30 ml 03/02/21 18:50 03/04/21 08:22 Magnesium Hydroxide Susp 30 Ml Udc PO 04/01/21 18:49 30 ml DAILY AMARILYS Administration Miscellaneous 1 ea 03/03/21 09:00 03/04/21 08:06 Remove Lidoderm Patch N/A 04/02/21 08:59 Not Given DAILY@0900 AMARILYS Montelukast Sodium 10 mg 03/02/21 21:00 03/03/21 20:21 Montelukast Sodium 10 Mg Tablet PO 04/01/21 20:59 10 mg HS AMARILYS Administration Nicotine 14 mg 03/03/21 09:00 03/04/21 08:05 Nicotine 14 Mg/24 Hr Patch TD 04/02/21 08:59 Not Given DAILY AMARILYS Pantoprazole Sodium 40 mg 03/02/21 21:00 03/04/21 08:14 Pantoprazole 40 Mg Tab PO 04/01/21 20:59 40 mg BID AMARILYS Administration Polyethylene Glycol 17 gm 03/02/21 18:50 03/04/21 08:14 Polyethylene (Miralax) 17 Gm Pack PO 04/01/21 18:49 17 gm DAILY AMARILYS Administration Prednisone 50 mg 03/03/21 09:00 03/04/21 08:13 Prednisone 50 Mg Tab PO 04/02/21 08:59 50 mg DAILY AMARILYS Administration Propylthiouracil 50 mg 03/02/21 21:00 03/04/21 08:14 Propylthiouracil 50 Mg Tab PO 04/01/21 20:59 50 mg BID AMARILYS Administration Senna/Docusate Sodium 1 tab 03/02/21 18:50 03/04/21 08:16 Docusate Sodium/Senna 50/8.6mg Tab PO 04/01/21 18:49 1 tab QAM AMARILYS Administration Sertraline HCl 100 mg 03/02/21 21:00 03/03/21 20:23 Sertraline Hcl 100 Mg Tablet PO 04/01/21 20:59 100 mg HS AMARILYS Administration Sucralfate 1 gm 03/02/21 18:50 03/04/21 17:49 Sucralfate 1 Gm Tab PO 04/01/21 18:49 1 gm ACHS AMARILYS Administration Trazodone HCl 100 mg 03/02/21 21:00 03/03/21 20:25 Trazodone Hcl 100 Mg Tab PO 04/01/21 20:59 100 mg HS AMARILYS Administration Past Medical History Medical History (Updated 03/04/21 @ 18:38 by Diego Bowens MD) Cervical disc disease Chronic diarrhea COPD (chronic obstructive pulmonary disease) Depression with anxiety Hepatic steatosis patient unaware noted by ultrasound 07/10/2020 Hypertension Hyperthyroidism Irritable bowel disease Ovarian cancer (~09/2019) had hysterectomy Tobacco dependence due to cigarettes .5-1 pack per day since age 18 Past Family History Family History Mother Heart disease Father Heart disease Parkinsons Myocardial infarction Denies family history of Ovarian cancer Prostate cancer Breast cancer Colorectal cancer Past Surgical History Surgical History H/O sinus surgery Status post hysterectomy Status post right knee replacement Status post tubal ligation Social History Smoking Status: Former smoker tobacco type: cigarettes Smoking cigarettes per day: 20 Do You Dip or Chew Tobacco: No Hx Alcohol Use: Yes Alcohol type: beer alcohol intake frequency: a few times a month Hx Substance Use: No substance use type: does not use Physical Exam Vital Signs Last Vital Signs Temp 37.2 C 03/04/21 15:58 Pulse 70 03/04/21 15:58 Resp 16 03/04/21 15:58 BP 126/75 03/04/21 15:58 Pulse Ox 91 03/04/21 15:58 Testing Laboratory Results 03/03/21 08:01 03/04/21 05:17 Hemoglobin A1c 5.3 % (4.5-5.6) 03/03/21 08:01 Urine Color Yellow 03/02/21 10:50 Urine Appearance Clear (Clear) 03/02/21 10:50 Urine pH 5.5 (4.5-7.5) 03/02/21 10:50 Ur Specific [place] <= 1.005 (1.000-1.030) 03/02/21 10:50 Urine Protein Trace (Negative) H 03/02/21 10:50 Urine Glucose (UA) Negative (Negative) 03/02/21 10:50 Urine Ketones Negative (Negative) 03/02/21 10:50 Urine Nitrite Negative (Negative) 03/02/21 10:50 Ur Leukocyte Esterase Negative (Negative) 03/02/21 10:50 Urine RBC 0-4 /hpf (0-4) 03/02/21 10:50 Urine WBC 0-5 /hpf (0-5) 03/02/21 10:50 Ur Epithelial Cells 10-20 /lpf (0-5) H 03/02/21 10:50 03/04/21 03/04/21 03/04/21 17:36 12:20 08:02 POC Glucose 104 H 123 H 89 Electrocardiogram Date: 03/02/21 Findings: + NSR @ (81) possible left atrial enlargement Chest X-Ray Date: 02/28/21 XR ribs BI min 4V w CXR1V CLINICAL HISTORY: Back pain s/p fall COMPARISON STUDY: August 20, 2020 FINDINGS: No pneumothorax. No pleural effusion. No large infiltrates or consolidative lesions are seen. Lung volumes are slightly increased. Cardiomediastinal silhouette is within normal limits in size. No significant pulmonary vascular congestion.. Osseous structures: No definite acute displaced rib fractures are seen. Questionable calcifications within upper abdomen might represent calcified plaques within aortic wall versus other etiology. IMPRESSION: 1. No acute pulmonary process. 2. No acute displaced rib fractures. ACT 112: Negative or not required by law. The above report was generated using voice recognition software. It may contain grammatical, syntax or spelling errors. Electronically signed by: Alice Haley DO 02/28/2021 1:12 PM Dictated: 02/28/21 1310Transcribed: 02/28/21 1310
[2021-03-04] MEDS: clonazePAM 0.5 MG TAB PO SCH (21:21)
[2021-03-04] MEDS: traZODone HCL 100 MG TAB PO SCH (21:23)
[2021-03-04] MEDS: SERTRALINE HCL 100 MG TABLET PO SCH (21:24)
[2021-03-04] MEDS: MONTELUKAST SODIUM 10 MG TABLET PO SCH (21:25)
[2021-03-04] MEDS: LIDOCAINE 5% 1 PATCH TD SCH (21:28)
--- NOTE | 2021-03-04 22:15 | Hospitalist Progress Note ---
Date of Service March 04, 2021 Assessment & Plan (1) Closed compression fracture of L1 vertebra: Plan: Severe pain due to such at admission but pain improved s/p SWAGING MACHINE ADJUSTER dilaudid. Cont lock-out 20min, demand dose 0.1mg. Cont prednisone. Cont lidoderm patch. Cont calcitonin nasal spray. Cont voltaren gel 4gm qid to back. 25-OH vit D level earlier this year wnl. L1 compression fracture likely osteoporotic in nature. Possibly going to OR tomorrow w/ Dr Pimentel for kyphoplasty. (2) Acute hyponatremia: Plan: Stable at 133. Now eating/drinking well. Suspect it will normalize by tomorrow. HCTZ use and poor oral intake likely caused low Na. Repeat BMP am. (3) Cervical disc disease: Plan: stable no issues (4) Gastritis: Plan: Continue PPI and Carafate (5) COPD (chronic obstructive pulmonary disease): Plan: Continue Trelegy or equivalent Continue Albuterol 90mcg HFA q6 prn 2 puffs (6) DJD (degenerative joint disease) of knee: Plan: meds for #1 will help this (7) Depression with anxiety: Plan: cont home meds (8) Hypertension: Plan: Continue Amlodipine, HCTZ, and Losartan Most readings acceptable Occasional highs 2nd pain (9) Irritable bowel disease: Plan: cont bentyl cont bowel regimen due to heavy narcotic use (10) Hyperthyroidism: Plan: Continue PTU 50 mg PO BID TSH on 02/28 wnl Plan: significant other updated at bedside Admission and Anticipated Discharge Date Admission Date: March 02, 2021 Subjective pt's back pain is much better today s/p SWAGING MACHINE ADJUSTER dilaudid uses the SWAGING MACHINE ADJUSTER often before she gets up to ambulate and this helps her ability to get around pain at rest also improved b/l leg pain better chest discomfort (which was from the back) also resolved eating ok had bowel movement today kyphoplasty planned for tomorrow per Dr Pimentel breathing is also improved declines nicoderm Review of Systems Review of Systems: gen - no fever, no chills CV - no pain Pulm - no dyspnea neuro - no numbness/tingling in legs Physical Exam Physical Exam: gen - much more comfortable today, a/o x 3 mouth - MMM neck - no JVD heart - RRR, s1 s2 lungs - b/l wheezes but much less today abd - soft ND NT BS+ back - much less pain to palpation today over l-spine neuro - strength 5/5 b/l legs ext - no edema pulses 2+ b/l Results & Data Results & Data ([facility]) Vital Signs (Past 12 Hours) Vital Signs Temp Pulse Resp BP Pulse Ox 03/04/21 19:08 36.7 C 61 16 121/72 93 03/04/21 15:58 37.2 C 70 16 126/75 91 03/04/21 11:29 36.5 C 57 L 13 127/72 96 Laboratory Results Laboratory Results - last 24 hr 03/04/21 03/04/21 03/04/21 05:17 08:02 12:20 Sodium 133 L Potassium 4.1 Chloride 101 Carbon Dioxide 31 Anion Gap 1.0 L BUN 20 H D Creatinine 0.95 Est Cr Clr Drug Dosing 59.7 Est GFR ( Amer) 74.4 Est GFR (Non-Af Amer) 64.2 BUN/Creatinine Ratio 21.4 H Glucose 100 H POC Glucose 89 123 H Calcium 9.3 Specimen Hemolysis 03/04/21 03/04/21 17:36 20:50 Sodium Potassium Chloride Carbon Dioxide Anion Gap BUN Creatinine Est Cr Clr Drug Dosing Est GFR ( Amer) Est GFR (Non-Af Amer) BUN/Creatinine Ratio Glucose POC Glucose 104 H 114 H Calcium Specimen Hemolysis PG Care Time/CCT Total # of Minutes Spent Total Time Spent with Patient: Total time spent is greater than 50% in coordination of care (as documented) at patient's floor/unit and/or counseling patient: Coding Level of Care Code 69766 Subseq Hosp Care Lvl 2 Diagnoses Closed compression fracture of L1 vertebra S32.010A Acute hyponatremia E87.1 Cervical disc disease M50.90 Gastritis K29.70 COPD (chronic obstructive pulmonary disease) J44.9 DJD (degenerative joint disease) of knee M17.10 Depression with anxiety F41.8 Hypertension I10 Irritable bowel disease K58.9 Hyperthyroidism E05.90
[2021-03-05 06:12] LABS: Hematocrit (blood only) 40.3 % (37-47); Hemoglobin 13.7 g/dL (12.0-16.0); Mean Corpuscular Hemoglobin 31.6 pg (25-34); Mean Corpuscular Volume 92.9 fL (80-100); Mean Platelet Volume 9.5 fL (7.4-10.4); Platelet Count 252 K/uL (130-400); RDW Coefficient of Variation 12.3 % (11.5-14.5); RDW Standard Deviation 41.7 fL (36.4-46.3); Red Blood Count 4.34 M/uL (4.2-5.4); White Blood Count 7.39 K/uL (4.8-10.8)
[2021-03-05 06:27] LABS: Prothrombin Time 9.8 Seconds (9.0-12.0)
[2021-03-05] MEDS: INSULIN ASPART 100 UNITS/ML 3 ML PEN SC SCH ×5 (06:32→21:57)
[2021-03-05 06:33] LABS: BUN Creatinine Ratio 24.4 (10-20); Calcium 9.2 mg/dl (8.5-10.1); Est GFR (African American) 79.4 ml/min; Est GFR (Non-African American) 68.5 ml/min
[2021-03-05 06:35] LABS: Potassium 3.8 mmol/L (3.5-5.1)
[2021-03-05] MEDS: POLYETHYLENE (MIRALAX) 17 GM PACK PO SCH (10:04)
[2021-03-05] MEDS: MAGNESIUM HYDROXIDE SUSP 30 ML UDC PO SCH (10:05)
[2021-03-05] MEDS: DOCUSATE SODIUM/SENNA 50/8.6MG TAB PO SCH ×2 (10:05→21:18)
[2021-03-05] MEDS: NICOTINE 14 MG/24 HR PATCH TD SCH (10:14)
[2021-03-05] MEDS: DICLOFENAC SOD 1% GEL 100 GM TUBE EXT SCH ×4 (10:14→21:15)
[2021-03-05] MEDS: SUCRALFATE 1 GM TAB PO SCH ×4 (10:15→21:18)
[2021-03-05] MEDS: DICYCLOMINE HCL 20 MG TAB PO SCH ×3 (10:15→21:16)
[2021-03-05] MEDS: LOSARTAN POTASSIUM 50 MG TAB PO SCH ×2 (10:16→21:18)
[2021-03-05] MEDS: amLODIPine BESYLATE 5 MG TAB PO SCH ×2 (10:16→21:16)
[2021-03-05] MEDS: CALCITONIN SALMON NA 200 IU/AC 3.7 ML BTL SCH (10:18)
[2021-03-05] MEDS: predniSONE 50 MG TAB PO SCH (10:19)
[2021-03-05] MEDS: propylthiouraciL 50 MG TAB PO SCH ×2 (10:19→19:26)
[2021-03-05] MEDS: PANTOprazole 40 MG TAB PO SCH ×2 (10:19→21:16)
[2021-03-05] MEDS: hydroCHLOROthiazide 25 MG TAB PO SCH (10:19)
[2021-03-05] MEDS: SODIUM CHLORIDE 0.9% 1000ML 1,000 ML IV SCH (12:51)
[2021-03-05] MEDS ORDERED: ONDANSETRON INJ 2 MG/ML 2 ML VIAL ONE (14:18)
[2021-03-05] MEDS ORDERED: PROPOFOL IV EMULSION 10 MG/ML 20 ML VIAL IV ONE (14:18)
[2021-03-05] MEDS ORDERED: fentaNYL citrate 100 MCG/2 ML VIAL ONE ×2 (14:18→16:16)
[2021-03-05] MEDS ORDERED: GLYCOPYRROLATE 0.2 MG/ML VIAL ONE (14:18)
[2021-03-05] MEDS ORDERED: ROCURONIUM BROMIDE 10 MG/ML 5 ML VIAL IV ONE (14:18)
[2021-03-05] MEDS ORDERED: NEOSTIGMINE METHYLSULFATE 1 MG/ML 10ML VIAL ONE (14:18)
[2021-03-05] MEDS ORDERED: LIDOCAINE 2% 2 ML VIAL/AMP(20MG/ML) INFIL ONE (14:18)
[2021-03-05] MEDS ORDERED: MIDAZOLAM HCL 1 MG/ML 2ML VIAL ONE (14:19)
[2021-03-05] MEDS ORDERED: BUPIVACAINE 0.5 % 5 MG/1 ML MPF 30ML VIAL ONE (15:01)
[2021-03-05] MEDS ORDERED: EPINEPHrine INJ 1 MG/ML AMP ONE (15:01)
--- NOTE | 2021-03-05 15:18 | History & Physical Bridge Note ---
Date of Service March 05, 2021 History & Physical Bridge Note I have examined the patient, reviewed the History & Physical and in the interval since the performance of the History & Physical I have noted the following changes of clinical significance: no changes noted L1 kyphoplasty
[2021-03-05] MEDS ORDERED: CLINDAMYCIN 600 MG/54 ML D5W IV ONE (15:25)
[2021-03-05] MEDS ORDERED: CLINDAMYCIN 600 MG/54 ML BAG IV SCH (15:30)
[2021-03-05] MEDS ORDERED: ATROPINE SULFATE 0.1 MG/ML 10ML SYR IV PRN (15:31)
[2021-03-05] MEDS ORDERED: FLUMAZENIL 0.1 MG/1 ML 10 ML VIAL IV PRN (15:31)
[2021-03-05] MEDS ORDERED: ePHEDrine sulfate 50 MG/ML AMP IV PRN (15:31)
[2021-03-05] MEDS ORDERED: NALOXONE HCL 0.4 MG/1 ML VIAL/CARP IV PRN ×2 (15:31→18:09)
[2021-03-05] MEDS ORDERED: LABETALOL HCL IV 5 MG/ML 20ML IV PRN (15:31)
[2021-03-05] MEDS ORDERED: ONDANSETRON INJ 2 MG/ML 2 ML VIAL IV PRN ×2 (15:31→18:09)
[2021-03-05] MEDS ORDERED: PROMETHAZINE HCL 12.5 MG in SODIUM CHLORIDE 0.9% 50 ML IV PRN ×2 (15:31→18:09)
--- NOTE | 2021-03-05 16:28 | Operative Report ---
Post Operative Report Pre & Post Diagnosis Operation Date: 03/05/21 12:15 Pre-Op Diagnosis: Closed compression fracture of L1 vertebra Post-Op Diagnosis: Closed compression fracture of L1 vertebra I identified the patient and participated in the time-out.: Yes Procedure Operation Date: 03/05/21 12:15 Actual Procedures #1 kyphoplasty L1 vertebral body. #2 biopsy of L1 vertebral body. Surgeon Js Pimentel, DO Computer Numerical Control Grinder None Estimated Blood Loss 5 Findings Consistent with Post-Op Diagnosis Specimens L1 vertebral body biopsy Indications This is a 60-year-old female who presents with significant back pain status post fall. Secondary to severe back pain she is here for surgical invention. She does understand she has pre-existing lumbar spinal stenosis which would not be dealt with at this time. Description of Procedure Patient met with identified informed consent obtained. Patient was then taken to the operative suite underwent ablation placed in a prone position Escobar table top chest padded bolsters. All bony prominences well-padded eyes inspected to ensure no external pressure placed upon. This point the thoracolumbar spine is prepped draped in a sterile fashion. The assistance of fluoroscopy in AP and lateral planes 2 small incisions were made just lateral to the L1 pedicle. 2 Kyphon working cannulas were then placed by way of a transpedicular approach into the L1 vertebral body. 2 core biopsies were then obtained. Then inserted to 15 mm Kyphon balloons within the vertebral body were sequentially inflated with fluoroscopic visualization. They were subsequently removed and approximately 5 cc of Kyphon cement injected with fluoroscopic visualization. It demonstrated excellent interdigitation within the L1 vertebral body. The working cannulas were then removed and 2 small incisions were closed with subcutaneous Monocryl and a sterile dressing placed. Patient waken taken to PACU stable condition. I attest to the content of the Intraoperative Record and any orders documented therein. Any exceptions are noted below.
[2021-03-05] MEDS: fentaNYL citrate 100 MCG/2 ML VIAL IV PRN ×4 (16:47→17:02)
[2021-03-05] MEDS ORDERED: ESMOLOL HCL INJ 10 MG/ML 10ML VIAL IV ONE (16:48)
--- NOTE | 2021-03-05 17:02 | Fluoroscopy Report ---
INTRAOPERATIVE RADIOGRAPHS CLINICAL HISTORY: L1 kyphoplasty. Fluoroscopy time: 121 seconds. FINDINGS: 2 spot fluoroscopic views of the lumbar spine are correlated with lumbar spine MRI dated 03/02/2021. There is a mild superior endplate compression deformity of L1 with kyphoplasty cement in plac e. The cement appears appropriately positioned. IMPRESSION: Intraoperative images from an L1 kyphoplasty procedure as above. Electronically signed by: Ariel Cummings M.D. 03/05/2021 5:01 PM
[2021-03-05] MEDS ORDERED: HYDROmorphone INJ 0.5 MG/0.5 ML SYR ONE (17:16)
[2021-03-05] MEDS: HYDROmorphone INJ 0.5 MG/0.5 ML SYR IV PRN ×3 (17:18→17:38)
--- NOTE | 2021-03-05 17:48 | Anesthesiology Progress Note ---
Date of Service March 05, 2021 Anesthesia Post Procedure Vital Signs Vital Signs: Temp Pulse Pulse Pulse Resp BP BP 03/05/21 17:40 36.2 C L 59 L 14 114/62 03/05/21 17:30 65 16 105/69 03/05/21 17:20 67 22 122/60 03/05/21 17:10 78 20 109/71 03/05/21 17:00 36.7 C 68 16 128/72 03/05/21 16:50 84 21 122/91 03/05/21 16:40 36.7 C 84 22 132/73 03/05/21 15:03 36.8 C 59 L 20 143/87 H 03/05/21 11:29 36.7 C 80 17 163/81 H 03/05/21 07:29 36.7 C 71 14 150/83 H 03/05/21 03:24 37.5 C 53 L 16 139/78 03/04/21 22:37 152/85 H 03/04/21 22:35 37.1 C 58 L 16 152/76 H 03/04/21 19:08 36.7 C 61 16 121/72 Pulse Ox 03/05/21 17:40 97 03/05/21 17:30 94 03/05/21 17:20 95 03/05/21 17:10 99 03/05/21 17:00 99 03/05/21 16:50 100 03/05/21 16:40 100 03/05/21 15:03 97 03/05/21 11:29 91 03/05/21 07:29 90 03/05/21 03:24 97 03/04/21 22:37 03/04/21 22:35 97 03/04/21 19:08 93 Pain Intensity Back: Pain Intensity: 6 Transfer of Care Handoff Completed per policy Notes Mental Status: alert / awake / arousable Patient Amnestic to Procedure: Yes Nausea / Vomiting: adequately controlled Pain: adequately controlled Airway Patency, RR, SpO2: stable & adequate BP & HR: stable & adequate Hydration State: stable & adequate Anesthetic Complications: no major complications apparent
[2021-03-05] MEDS ORDERED: SODIUM CHLORIDE 0.9% 1000ML 1,000 ML IV SCH (18:09)
[2021-03-05] MEDS ORDERED: MAGNESIUM HYDROXIDE SUSP 30 ML UDC PO PRN (18:09)
[2021-03-05] MEDS ORDERED: FAMOTIDINE 20 MG TAB PO PRN (18:09)
[2021-03-05] MEDS ORDERED: DO NOT ADMINISTER FLU VACCINE PRN (18:09)
[2021-03-05] MEDS ORDERED: METOCLOPRAMIDE HCL INJ 5 MG/ML 2 ML VIAL IV PRN (18:09)
[2021-03-05] MEDS ORDERED: bisacodyL 10 MG SUPP PR PRN (18:09)
[2021-03-05] MEDS ORDERED: HYDROmorphone INJ 0.5 MG/0.5 ML SYR IV PRN (18:09)
[2021-03-05] MEDS ORDERED: SOD PHOSPHATE/SOD BIPHOSPHATE ENEMA 132 ML BTL PR PRN (18:09)
[2021-03-05] MEDS ORDERED: ACETAMINOPHEN 500 MG TAB PO PRN (18:09)
[2021-03-05] MEDS ORDERED: ONDANSETRON 4 MG OD TAB PO PRN (18:09)
[2021-03-05] MEDS ORDERED: DO NOT ADMINISTER PNEUMOCOCCAL VACCINE PRN (18:09)
[2021-03-05] MEDS ORDERED: LORazepam 0.5 MG TAB PO PRN (18:09)
[2021-03-05] MEDS ORDERED: hydrOXYzine HCl 25 MG TAB PO PRN (18:09)
[2021-03-05] MEDS ORDERED: ALUMINUM/MAGNESIUM SUSP 30 ML UDC PO PRN (18:09)
[2021-03-05] MEDS ORDERED: HYDROmorphone INJ 1 MG/ML SYRINGE IV PRN (18:09)
[2021-03-05] MEDS ORDERED: diphenhydrAMINE Capsule 25 MG CAP PO PRN (18:09)
[2021-03-05] MEDS ORDERED: ACETAMINOPHEN 1,000 MG/100 ML VIAL IV PRN (18:09)
[2021-03-05] MEDS ORDERED: LORazepam 0.5 MG/1 ML VIAL IV PRN (18:09)
[2021-03-05] MEDS ORDERED: Nursing to Pharmacy Communication SCH (18:45)
[2021-03-05] MEDS: MONTELUKAST SODIUM 10 MG TABLET PO SCH (21:15)
[2021-03-05] MEDS: ceFAZolin 1000MG 1,000 MG/7.5 ML SYR IV SCH (21:15)
[2021-03-05] MEDS: clonazePAM 0.5 MG TAB PO SCH (21:15)
[2021-03-05] MEDS: SERTRALINE HCL 100 MG TABLET PO SCH (21:16)
[2021-03-05] MEDS: traZODone HCL 100 MG TAB PO SCH (21:18)
[2021-03-05] MEDS: LIDOCAINE 5% 1 PATCH TD SCH (21:19)
[2021-03-05] MEDS: HYDROCODONE/ACETAMOPHEN 5/325MG TAB PO PRN (22:29)
--- NOTE | 2021-03-05 22:53 | Hospitalist Progress Note ---
Date of Service March 05, 2021 Assessment & Plan (1) Closed compression fracture of L1 vertebra: Plan: s/p kyphoplasty procedure by Dr Pimentel today. Pain markedly improved. Cont prednisone - plan 5-7 days of 50mg then stop. Cont lidoderm patch. Cont calcitonin nasal spray. Cont voltaren gel 4gm qid to back. 25-OH vit D level earlier this year wnl. L1 compression fracture likely osteoporotic in nature. Biopsy done by Dr Pimentel intra-op and pending. Dilaudid GAS CHARGER d/c. Cont oral pain meds prn. Appreciate Dr Pimentel's assistance. (2) Acute hyponatremia: Plan: Resolved. HCTZ use and poor oral intake preadmission likely caused low Na. Repeat BMP am for stability. (3) Cervical disc disease: Plan: stable no issues (4) Gastritis: Plan: Continue PPI and Carafate (5) COPD (chronic obstructive pulmonary disease): Plan: Continue Trelegy or equivalent Continue Albuterol 90mcg HFA q6 prn 2 puffs (6) DJD (degenerative joint disease) of knee: Plan: meds for #1 will help this (7) Depression with anxiety: Plan: cont home meds (8) Hypertension: Plan: Continue Amlodipine, HCTZ, and Losartan Controlled (9) Irritable bowel disease: Plan: cont bentyl cont bowel regimen due to heavy narcotic use (10) Hyperthyroidism: Plan: Continue PTU 50 mg PO BID TSH on 02/28 wnl (11) Tremor of both hands: Plan: hyperthyroidism is controlled thus - 2nd to albuterol? 2nd to anxiety? etoh withdrawal (but patient reports little etoh intake)? essential tremor? other? follow for now Plan: holding lovenox due to surgery today PT, OT michelle (pre-op) both advised inpatient rehab we discussed this briefly today during my visit Admission and Anticipated Discharge Date Admission Date: March 02, 2021 Subjective saw patient post-op from her L1 compression fracture. she was resting comfortably and eating her meal. she looked good. she reports her back pain is MUCH better in comparison to arriving at the hospital. GAS CHARGER dilaudid now discontinued. she denies any leg pains. denies any other new complaints. patient looked jittery and she blamed that on "not getting my thyroid medication today." Review of Systems Review of Systems: gen - denies appetite loss, fatigue CV - no chest pain pulm - no cough; wheezing improved GI - no pain, nausea neuro - no radicular symptoms of either leg Physical Exam Physical Exam: gen - patient looks much more comfortable today, a/o x 3; NAD mouth - MMM neck - no JVD heart - RRR, s1 s2 lungs - minimal b/l wheezes; no rales abd - soft ND NT BS+ back - no pain to palpation; [address] over upper lumbar spine region from surgery today neuro - strength 5/5 b/l legs; mild tremors noted ext - no edema; pulses 2+ b/l skin - palmar erythema b/l Results & Data Results & Data ([facility]) Vital Signs (Past 12 Hours) Vital Signs Temp Pulse Pulse Resp BP BP Pulse Ox 03/05/21 21:13 36.6 C 85 16 155/83 H 95 03/05/21 19:20 36.4 C L 77 16 106/66 97 03/05/21 18:35 36.8 C 62 17 120/73 96 03/05/21 18:10 36.9 C 61 16 107/71 96 03/05/21 17:50 67 15 104/60 97 03/05/21 17:40 36.2 C L 59 L 14 114/62 97 03/05/21 17:30 65 16 105/69 94 03/05/21 17:20 67 22 122/60 95 03/05/21 17:10 78 20 109/71 99 03/05/21 17:00 36.7 C 68 16 128/72 99 03/05/21 16:50 84 21 122/91 100 03/05/21 16:40 36.7 C 84 22 132/73 100 03/05/21 15:03 36.8 C 59 L 20 143/87 H 97 03/05/21 11:29 36.7 C 80 17 163/81 H 91 Laboratory Results Laboratory Results - last 24 hr 03/05/21 03/05/21 03/05/21 00:24 05:48 05:48 WBC 7.39 RBC 4.34 Hgb 13.7 Hct 40.3 MCV 92.9 MCH 31.6 MCHC 34.0 RDW Std Deviation 41.7 RDW Coeff of Gladys 12.3 Plt Count 252 MPV 9.5 PT INR Sodium 136 Potassium 3.8 Chloride 102 Carbon Dioxide 31 Anion Gap 3.0 BUN 22 H Creatinine 0.90 Est Cr Clr Drug Dosing 63.0 Est GFR ( Amer) 79.4 Est GFR (Non-Af Amer) 68.5 BUN/Creatinine Ratio 24.4 H Glucose 90 POC Glucose 107 H Calcium 9.2 03/05/21 03/05/21 03/05/21 05:48 06:02 12:16 WBC RBC Hgb Hct MCV MCH MCHC RDW Std Deviation RDW Coeff of Gladys Plt Count MPV PT 9.8 INR 1.0 Sodium Potassium Chloride Carbon Dioxide Anion Gap BUN Creatinine Est Cr Clr Drug Dosing Est GFR ( Amer) Est GFR (Non-Af Amer) BUN/Creatinine Ratio Glucose POC Glucose 96 99 Calcium 03/05/21 03/05/21 18:37 21:30 WBC RBC Hgb Hct MCV MCH MCHC RDW Std Deviation RDW Coeff of Gladys Plt Count MPV PT INR Sodium Potassium Chloride Carbon Dioxide Anion Gap BUN Creatinine Est Cr Clr Drug Dosing Est GFR ( Amer) Est GFR (Non-Af Amer) BUN/Creatinine Ratio Glucose POC Glucose 122 H 149 H Calcium PG Care Time/CCT Total # of Minutes Spent Total Time Spent with Patient: Total time spent is greater than 50% in c oordination of care (as documented) at patient's floor/unit and/or counseling patient: Coding Level of Care Code 69319 Subseq Hosp Care Lvl 2 Diagnoses Closed compression fracture of L1 vertebra S32.010A Acute hyponatremia E87.1 Cervical disc disease M50.90 Gastritis K29.70 COPD (chronic obstructive pulmonary disease) J44.9 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
[2021-03-06] MEDS: ceFAZolin 1000MG 1,000 MG/7.5 ML SYR IV SCH (05:30)
[2021-03-06] MEDS: POLYETHYLENE (MIRALAX) 17 GM PACK PO SCH ×3 (06:21→17:30)
--- NOTE | 2021-03-06 08:04 | Hospitalist Progress Note ---
Date of Service March 06, 2021 Assessment & Plan (1) Closed compression fracture of L1 vertebra: Plan: Postop day 1 s/p kyphoplasty procedure by Dr Pimentel 03/06 Pain controlled however she did weight since last evening up to this morning before getting a dose of pain medication. Discussed trial dose of tramadol to see if effective until her next dose of oxycodone to avoid further Dilaudid as she hopes for discharge with home health today. Discussed if ineffective she may try IV medication but would need to monitor overnight She has not moved her bowels since surgery and has been on EDUCATION PARAPROFESSIONAL pump (since discontinued ) and frequent oxycodone up until recently. Added Dulcolax and mag citrate as needed if ineffective as this could be contributing to increased pain as well Continues on oxycodone as needed, tramadol as above Continues on prednisone 50 mg for an additional 1 day then stop Can continue with lidocaine patch, calcitonin nasal spray, Voltaren gel 4 times daily to her back Vitamin D level normal earlier this year and L1 pressure pressure likely os teoporotic in nature Biopsy done by Dr Pimentel intra-op and pending and will need outpatient follow-up Per Dr. Loren stout for discharge today. Therapy notes not yet updated but patient has been ambulating without walker and anticipate home with home health through [facility] pain control this afternoon and bowels moving Would recommend bowel regimen at discharge to prevent constipation while on pain medication (2) Acute hyponatremia: Plan: Resolved but then 134 on a.m. labs She had much intake yesterday due to surgery pain medication Would recommend that she hold her hydrochlorothiazide for tomorrow as she is increasing her oral intake less blood pressure became elevated and was resumed on 03/08 BMP in a.m. if remains inpatient (3) Cervical disc disease: Plan: stable no issues (4) Gastritis: Plan: Chronic, probably worsened by steroids and will complete for tomorrow Continue PPI and Carafate (5) COPD (chronic obstructive pulmonary disease): Plan: Continue Trelegy or equivalent Continue Albuterol 90mcg HFA q6 prn 2 puffs 96% on room air Encourage smoking cessation (6) DJD (degenerative joint disease) of knee: Plan: meds for #1 will help this (7) Depression with anxiety: Plan: cont home meds (8) Hypertension: Plan: Continue Amlodipine, HCTZ (placed on hold as above), and Losartan Controlled and 114/65 (9) Irritable bowel disease: Plan: cont bentyl cont bowel regimen due to heavy narcotic use --> No bowel movement since prior to surgery as above. Dulcolax x1 as well as mag citrate as needed Continue bowel regimen at discharge increased amounts given pain control (10) Hyperthyroidism: Plan: Continue PTU 50 mg PO BID TSH on 02/28 wnl (11) Tremor of both hands: Plan: hyperthyroidism is controlled Not likely secondary to alcohol withdrawal given decreased intake reported, possibly due to albuterol and anxiety about going home. Question secondary to prednisone use and will limit taper to 5 days as above, last day tomorrow No tremor noted today Plan: Initially placed on Lovenox but this was held due to kyphoplasty as above PT, OT michelle (pre-op) both advised inpatient rehab initially however it appears the patient may be able to go home with home health but evaluations are not yet in the system Discussed with pain controlled with the above and when bowels are moving good consider discharge this afternoon however if continue to work on bowel regimen and pain control inpatient and hopefully tomorrow discharge home with home health. Case management following Admission and Anticipated Discharge Date Admission Date: March 02, 2021 Supervising Physician Co-Signing Physician Notes PA Supervision Note: I did not personally see or examine the patient today, but I verified all martinez points of JANEY Laughlin's assessment and plan with the following exceptions/additions: None Subjective Patient evaluated this morning. Patient received pain medication last evening around 10:00 but nothing until this morning. She states that she has increased pain at a level of 7/10 and received 1 dose of pain medication this morning which she does not feel is completely effective. Discussed trying a dose of tramadol instead of IV Dilaudid which she is agreeable to to see if this will bridge her enough to get to the next dose given she waited longer period of time between doses. Patient also states that she did move her bowels however this was prior to surgery and did a Dilaudid EDUCATION PARAPROFESSIONAL she notes she was passing gas but none this morning. Discussed helping her her bowels will decrease back pain symptoms. She notes that she has been up and walking without a walker and would like to go home when able. Discussed that she will schedule after the to get her bowels moving and possible discharge from today versus keeping her overnight for monitoring with plans for discharge tomorrow. He is a smoker but states that she would like to avoid this in the future and does not need anything for his nicotine patch at this time. She notes that she drinks alcohol on rare occasion depending on what is happening for the month but does not endorse any daily drinking more several times weekly. Weeks since previous drink No fever, chills, chest pain, shortness of breath, abdominal pain, nausea, vomiting at this time.. Review of Systems Review of Systems: All systems reviewed & are unremarkable except as noted in HPI & below Physical Exam Physical Exam: gen -well nourished, well developed, sitting up in bed no acute distress. Feels very comfortable and had just been ambulating without a walker mouth -slightly dry mucous membranes neck - no JVD heart - RRR, s1 s2 lungs - minimal bibasilar crackles, no wheezes; no rales. + Cough, nonproductive abd - soft ND NT BS+ back - no pain to palpation; [address] over upper lumbar spine region from surgery clean dry and intact neuro - strength 5/5 b/l legs; no tremors noted ext - no edema; pulses 2+ b/l skin - palmar erythema b/l decreased Results & Data Results & Data ([facility]) Vital Signs (Past 12 Hours) Vital Signs Temp Pulse Resp BP Pulse Ox 03/06/21 03:55 36.9 C 65 16 114/65 96 03/05/21 23:13 36.6 C 59 L 16 87/54 L 94 03/05/21 21:13 36.6 C 85 16 155/83 H 95 Laboratory Results 03/06/21 03/06/21 03/06/21 Range/Units 12:17 08:03 07:52 Sodium 134 L (136-145) mmol/L Potassium 3.8 (3.5-5.1) mmol/L Chloride 101 (98-107) mmol/L Carbon Dioxide 28 (21-32) mmol/L Anion Gap 5.0 (3-11) BUN 17 (7-18) mg/dl Creatinine 0.96 (0.6-1.2) mg/dl Est Cr Clr Drug Dosing 59.1 ml/min Est GFR ( Amer) 73.5 ml/min Est GFR (Non-Af Amer) 63.4 ml/min BUN/Creatinine Ratio 18.1 (10-20) Glucose 86 (70-99) mg/dl POC Glucose 140 H 90 (70-99) mg/dl Calcium 9.2 (8.5-10.1) mg/dl 03/05/21 03/05/21 Range/Units 21:30 18:37 Sodium (136-145) mmol/L Potassium (3.5-5.1) mmol/L Chloride (98-107) mmol/L Carbon Dioxide (21-32) mmol/L Anion Gap (3-11) BUN (7-18) mg/dl Creatinine (0.6-1.2) mg/dl Est Cr Clr Drug Dosing ml/min Est GFR ( Amer) ml/min Est GFR (Non-Af Amer) ml/min BUN/Creatinine Ratio (10-20) Glucose (70-99) mg/dl POC Glucose 149 H 122 H (70-99) mg/dl Calcium (8.5-10.1) mg/dl PG Care Time/CCT Total # of Minutes Spent Total Time Spent with Patient: Total time spent is greater than 50% in coordination of care (as documented) at patient's floor/unit and/or counseling patient: Coding Level of Care Code 51913 Subseq Hosp Care Lvl 3 Diagnoses Closed compression fracture of L1 vertebra S32.010A Acute hyponatremia E87.1 Cervical disc disease M50.90 Gastritis K29.70 COPD (chronic obstructive pulmonary disease) J44.9 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
[2021-03-06] MEDS: NICOTINE 14 MG/24 HR PATCH TD SCH (08:49)
[2021-03-06] MEDS: MAGNESIUM HYDROXIDE SUSP 30 ML UDC PO SCH (09:12)
[2021-03-06] MEDS: DICLOFENAC SOD 1% GEL 100 GM TUBE EXT SCH ×4 (09:12→20:38)
[2021-03-06] MEDS: hydroCHLOROthiazide 25 MG TAB PO SCH (09:13)
[2021-03-06] MEDS: CALCITONIN SALMON NA 200 IU/AC 3.7 ML BTL SCH (09:13)
[2021-03-06] MEDS: DICYCLOMINE HCL 20 MG TAB PO SCH ×3 (09:13→20:37)
[2021-03-06] MEDS: PANTOprazole 40 MG TAB PO SCH ×2 (09:13→20:36)
[2021-03-06] MEDS: propylthiouraciL 50 MG TAB PO SCH ×2 (09:13→20:36)
[2021-03-06] MEDS: SUCRALFATE 1 GM TAB PO SCH ×4 (09:13→20:37)
[2021-03-06] MEDS: amLODIPine BESYLATE 5 MG TAB PO SCH ×2 (09:14→20:37)
[2021-03-06] MEDS: predniSONE 50 MG TAB PO SCH (09:14)
[2021-03-06] MEDS: LOSARTAN POTASSIUM 50 MG TAB PO SCH ×2 (09:14→20:37)
[2021-03-06] MEDS: HYDROCODONE/ACETAMOPHEN 5/325MG TAB PO PRN (09:17)
[2021-03-06 09:21] LABS: BUN Creatinine Ratio 18.1 (10-20); Calcium 9.2 mg/dl (8.5-10.1); Creatinine Clr Calc Pharmacy 59.1 ml/min; Est GFR (African American) 73.5 ml/min; Est GFR (Non-African American) 63.4 ml/min; Potassium 3.8 mmol/L (3.5-5.1)
[2021-03-06] MEDS: INSULIN ASPART 100 UNITS/ML 3 ML PEN SC SCH ×4 (09:25→20:41)
--- NOTE | 2021-03-06 12:13 | Orthopedic Progress Note ---
Date of Service March 06, 2021 Assessment & Plan (1) Closed compression fracture of L1 vertebra: Plan: Patient is status post kyphoplasty. She has had impressive results. Recommend she continue with activity as tolerated and is safe for discharge home per orthopedics. Admission and Anticipated Discharge Date Admission Date: March 02, 2021 Subjective Patient's back pain is markedly improved denies any leg pain. Physical Exam Physical Exam: On exam she appears comfortable. She is sitting up in bed. Discussed with the testing. She states she has been up and ambulating. Results & Data ([facility]) Vital Signs (Past 12 Hours) Vital Signs Temp Pulse Resp BP Pulse Ox 03/06/21 03:55 36.9 C 65 16 114/65 96
[2021-03-06] MEDS ORDERED: bisacodyL 5 MG TABEC PO ONE (12:23)
[2021-03-06] MEDS ORDERED: traMADol HCL 50 MG TABLET PO PRN (12:23)
[2021-03-06] MEDS ORDERED: traMADol HCL 50 MG TABLET PO STA (12:23)
[2021-03-06] MEDS ORDERED: MAGNESIUM CITRATE 296 ML/BTL PO PRN (12:24)
[2021-03-06] MEDS: MAGNESIUM SULFATE / D5W 1 GM/100 ML BAG IV SCH ×3 (13:23→17:26)
[2021-03-06] MEDS: SERTRALINE HCL 100 MG TABLET PO SCH (20:36)
[2021-03-06] MEDS: traZODone HCL 100 MG TAB PO SCH (20:36)
[2021-03-06] MEDS: DOCUSATE SODIUM/SENNA 50/8.6MG TAB PO SCH (20:36)
[2021-03-06] MEDS: MONTELUKAST SODIUM 10 MG TABLET PO SCH (20:36)
[2021-03-06] MEDS: clonazePAM 0.5 MG TAB PO SCH (20:37)
[2021-03-06] MEDS: LIDOCAINE 5% 1 PATCH TD SCH (21:16)
[2021-03-07] MEDS: POLYETHYLENE (MIRALAX) 17 GM PACK PO SCH (00:19)
[2021-03-07] MEDS: HYDROCODONE/ACETAMOPHEN 5/325MG TAB PO PRN ×3 (06:41→16:34)
[2021-03-07 06:58] VITALS: TEMP 98.6
[2021-03-07] MEDS ORDERED: COUGH DROP (SUGAR FREE) LOZ 24 LOZ/1 BOX BUCCAL PRN (07:40)
[2021-03-07] MEDS: CALCITONIN SALMON NA 200 IU/AC 3.7 ML BTL SCH (07:49)
[2021-03-07] MEDS: amLODIPine BESYLATE 5 MG TAB PO SCH (07:50)
[2021-03-07] MEDS: SUCRALFATE 1 GM TAB PO SCH ×2 (07:50→12:39)
[2021-03-07] MEDS: DICYCLOMINE HCL 20 MG TAB PO SCH ×2 (07:50→13:20)
[2021-03-07] MEDS: PANTOprazole 40 MG TAB PO SCH (07:50)
[2021-03-07] MEDS: LOSARTAN POTASSIUM 50 MG TAB PO SCH (07:50)
[2021-03-07] MEDS: propylthiouraciL 50 MG TAB PO SCH (07:50)
[2021-03-07] MEDS: MAGNESIUM HYDROXIDE SUSP 30 ML UDC PO SCH (07:51)
[2021-03-07] MEDS: DICLOFENAC SOD 1% GEL 100 GM TUBE EXT SCH ×2 (07:51→12:39)
[2021-03-07] MEDS: NICOTINE 14 MG/24 HR PATCH TD SCH (07:51)
--- NOTE | 2021-03-07 07:54 | Hospitalist Progress Note ---
Date of Service March 07, 2021 Assessment & Plan (1) Closed compression fracture of L1 vertebra: Plan: Postop day 1 s/p kyphoplasty procedure by Dr Pimentel 03/06 Pain controlled however she did weight since last evening up to this morning before getting a dose of pain medication. Discussed trial dose of tramadol to see if effective until her next dose of oxycodone to avoid further Dilaudid as she hopes for discharge with home health today. Discussed if ineffective she may try IV medication but would need to monitor overnight She has not moved her bowels since surgery and has been on BLACKING MACHINE OPERATOR pump (since discontinued ) and frequent oxycodone up until recently. Added Dulcolax and mag citrate as needed if ineffective as this could be contributing to increased pain as well Continues on oxycodone as needed, tramadol as above Continues on prednisone 50 mg for an additional 1 day then stop Can continue with lidocaine patch, calcitonin nasal spray, Voltaren gel 4 times daily to her back Vitamin D level normal earlier this year and L1 pressure pressure likely os teoporotic in nature Biopsy done by Dr Pimentel intra-op and pending and will need outpatient follow-up Per Dr. Loren stout for discharge today. Therapy notes not yet updated but patient has been ambulating without walker and anticipate home with home health through [facility] pain control this afternoon and bowels moving Would recommend bowel regimen at discharge to prevent constipation while on pain medication (2) Acute hyponatremia: Plan: Resolved but then 134 on a.m. labs She had much intake yesterday due to surgery pain medication Would recommend that she hold her hydrochlorothiazide for tomorrow as she is increasing her oral intake less blood pressure became elevated and was resumed on 03/08 BMP in a.m. if remains inpatient (3) Cervical disc disease: Plan: stable no issues (4) Gastritis: Plan: Chronic, probably worsened by steroids and will complete for tomorrow Continue PPI and Carafate (5) COPD (chronic obstructive pulmonary disease): Plan: Continue Trelegy or equivalent Continue Albuterol 90mcg HFA q6 prn 2 puffs 96% on room air Encourage smoking cessation (6) DJD (degenerative joint disease) of knee: Plan: meds for #1 will help this (7) Depression with anxiety: Plan: cont home meds (8) Hypertension: Plan: Continue Amlodipine, HCTZ (placed on hold as above), and Losartan Controlled and 114/65 (9) Irritable bowel disease: Plan: cont bentyl cont bowel regimen due to heavy narcotic use --> No bowel movement since prior to surgery as above. Dulcolax x1 as well as mag citrate as needed Continue bowel regimen at discharge increased amounts given pain control (10) Hyperthyroidism: Plan: Continue PTU 50 mg PO BID TSH on 02/28 wnl (11) Tremor of both hands: Plan: hyperthyroidism is controlled Not likely secondary to alcohol withdrawal given decreased intake reported, possibly due to albuterol and anxiety about going home. Question secondary to prednisone use and will limit taper to 5 days as above, last day tomorrow No tremor noted today Plan: Initially placed on Lovenox but this was held due to kyphoplasty as above PT, OT michelle (pre-op) both advised inpatient rehab initially however it appears the patient may be able to go home with home health but evaluations are not yet in the system Discussed with pain controlled with the above and when bowels are moving good consider discharge this afternoon however if continue to work on bowel regimen and pain control inpatient and hopefully tomorrow discharge home with home health. Case management following Admission and Anticipated Discharge Date Admission Date: March 02, 2021 Subjective Patient evaluated this morning. She notes that she did have several episodes. She does have increased frustrations with her primary care provider who is a nurse practitioner about her care regarding her Klonopin which has been decreased and she was told that this would not be continued any further until she saw pain management or psychiatric provider. Discussed trialing a dose of Vistaril to see if this helps with anxiety and would be able to send this with her at discharge. She states that she was seen by therapy this morning and did well and was hopeful discharge this afternoon. She notes that she does have a little bit of a sore throat and we did discuss history of gastritis and her prednisone use which could have worsened this and no further doses to be given. She would like a dose of Maalox. She is a smoker and is now expectorating more sputum as mucociliary elevator is beginning to return. /Breath and history of asthma nursing provide dose of albuterol. Several bowel movements discussed b discharge follow-up on Protonix therapy she develops any recurrence of her cramping which have resolved outside of increased anxiety symptoms this morning after sleeping on her back. Awaiting PT and OT evaluations for placement. Probable discharge this afternoon when stable. Physical Exam Physical Exam: gen -well nourished, well developed, sitting up in bed no acute distress. Feels very comfortable and had just been ambulating without a walker mouth -slightly dry mucous membranes neck - no JVD heart - RRR, s1 s2 lungs - minimal bibasilar crackles, no wheezes; no rales. + Cough, nonproductive abd - soft ND NT BS+ back - no pain to palpation; [address] over upper lumbar spine region from surgery clean dry and intact neuro - strength 5/5 b/l legs; no tremors noted ext - no edema; pulses 2+ b/l skin - palmar erythema b/l decreased Results & Data Results & Data ([facility]) Vital Signs (Past 12 Hours) Vital Signs Temp Pulse Resp BP BP Pulse Ox 03/07/21 06:22 37.0 C 78 16 121/70 99 03/06/21 22:02 36.6 C 64 16 106/64 96 03/06/21 20:34 64 133/72 99 PG Care Time/CCT Total # of Minutes Spent Total Time Spent with Patient: Total time spent is greater than 50% in c oordination of care (as documented) at patient's floor/unit and/or counseling patient: Coding Diagnoses Closed compression fracture of L1 vertebra S32.010A Acute hyponatremia E87.1 Cervical disc disease M50.90 Gastritis K29.70 COPD (chronic obstructive pulmonary disease) J44.9 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
[2021-03-07 07:58] LABS: BUN Creatinine Ratio 21.4 (10-20); Calcium 9.1 mg/dl (8.5-10.1); Est GFR (African American) 79.4 ml/min; Est GFR (Non-African American) 68.5 ml/min; Magnesium 2.2 mg/dl (1.8-2.4); Potassium 3.6 mmol/L (3.5-5.1)
[2021-03-07] MEDS: INSULIN ASPART 100 UNITS/ML 3 ML PEN SC SCH ×2 (09:30→12:40)
[2021-03-07] MEDS ORDERED: hydrOXYzine HCl 10 MG TAB PO STA (11:36)
[2021-03-07 14:47] VITALS: PULSE 72; O2SAT 98
--- NOTE | 2021-03-07 15:25 | Discharge Summary ---
Date of Service March 07, 2021 Admission HPI Per Admitting Provider 60 YOF with past medical history of: Cervical DJD, HTN, Depression, current smoker, left knee pain, Hyperthyroidism, IBSD, gastritis, chronic back pain, ovarian cancer- hysterectomy, HTN, right knee pain. Patient comes in to the EMD today for uncontrolled pain following L1 compression fracture on 02/28/21. Patient reports that she fell on Tuesday while getting up in her bedroom and tripped. She is unaware of what she fell on or how she fell. She reports to me that she tripped because her night light was out. She normally follows with [facility] for her right knee pain. The patient states that she lives by herself and has just been unable to get her pain controlled or get up to take care of herself. The pain is located in lower back and is sharp knifelike pain, that when she moves the wrong way will take her breath away. She was also finding it hard to take a deep breath as well as difficulty defecating due to constipation and pain, she was able to get up and urinate after pain control in the EMD. The pain is not associated with any nausea or vomiting and does not radiate and no reports of radiculopathy. In the EMD the patient was given Morphine, Decadron, and 1GM IV Tylenol; she states that her pain is better controlled at this time. Patient will be admitted for multimodal tiered pain control, will obtain an MRI of the lumbar spine for further evaluation. Orthopaedics has been consulted. For her hyponatremia associated with hypochloridemia likely related to her inability to get up and get nutrition and oral fluid intake. Admission Exam Per Admitting Provider PHYSICAL EXAM: General: awake, alert, no apparent distress Head: Normocephalic, atraumatic ENT: PERRL, EOMI, no pharyngeal exudate, mucous membranes moist Neuro: AAO x 3, speech clear and appropriate, strength intact bilaterally 5/5, sensation intact and equal all extremities and dermatomes, no pronator drift Chest: equal rise and fall of the chest, no accessory muscle use, no heaves or thrills, scattered wheezes, on 2lNC, Cardiac: Regular rate and rhythm, telemetry reviewed, skin warm dry, cap refill <3 seconds, peripheral pulses, +2 no JVD, no murmur, no edema GI: NABS x 4 quadrants, soft, nontender to palpation, no rebound, guarding or tenderness : Spontaneously voiding, no pain, no CVA tenderness, Extremities: Normal inspection, no peripheral edema or erythema, calfs nontender to palpation Psych: Normal mood and affect MSK: No pain to palpation of pelvis- stable, no hip or leg pain, full ROM, pain with palpation to L1-S1 surrounding muscles not in spasm at this time, no radculopathy Skin: no rash or erythema Principal Diagnosis L1 Compression Fracture Discharge Exam Constitutional WD/WN, vitals as above not cachectic Eyes + anicteric sclerae and PERRL ENMT Mouth: + poor dentition mmm Neck normal visual inspection and trachea midline Respiratory normal respiratory effort Auscultation: + rhonchi (coarse throughout); no crackles and no wheezes 98% on room air Cardiovascular Rate/Rhythm: regular rate and regular rhythm Heart Sounds: no murmur Vessels: no carotid bruit Gastrointestinal (Abdomen) normal bowel sounds, soft, nontender, no hepatosplenomegaly Musculoskeletal no cyanosis or clubbing, extremities motor strength 5/5 (dressing to lumar spine c/d/i, pulses palpable bilaterally, full strength) Skin warm, dry Neurologic moves all extremities Motor/Sensory: no sensory deficit Psychiatric Orientation: alert and oriented x 3 Genitourinary no jose Discharge Data Allergies Allergy/AdvReac Type Severity Reaction Status Date / Time amitriptyline Allergy Intermediate Headache Verified 03/02/21 10:56 Penicillins Allergy Unknown Unknown Verified 03/02/21 10:56 codeine AdvReac Mild Vomiting Verified 03/02/21 10:56 Consultations 03/02/21 12:52 ED Decision to Admit Stat 03/02/21 14:35 Consult Orthopedic Surgery Routine Procedures Performed Operation Date: 03/05/21 12:15 Actual Procedures p L1 Kyphoplasty - Js Pimentel DO Ordered Studies Lumbar Spine CT 03/02/21 09:53 CT SCAN OF THE ABDOMEN AND PELVIS WITH IV CONTRAST; CT SCAN OF THE LUMBAR SPINE WITH IV CONTRAST CLINICAL HISTORY: Fall. Low back pain. Generalized abdominal pain. COMPARISON STUDY: Abdominal CT dated 02/06/2010. Lumbar spine radiographs dated 02/28/2021. TECHNIQUE: Following the IV administration of 94 cc of Optiray 320, CT scan of the abdomen and pelvis is performed from the lung bases to the proximal femora. Additionally, CT scan of the lumbar spine is performed from the lower thoracic spine to the sacrum. Images for both examinations are reviewed in the axial, sagittal, and coronal planes. IV contrast was administered without complication. A dose lowering technique was utilized adhering to the principles of ALARA. FINDINGS: Lung bases: The heart is normal in size noting a small pericardial effusion. There are coronary artery calcifications. The lung bases are clear. Liver: The contrast-enhanced liver is normal in size, contour, and attenuation. There is no intrahepatic biliary ductal dilatation. The hepatic veins and portal veins are patent. Gallbladder: Unremarkable. Spleen: Normal in size and attenuation. Pancreas: Unremarkable. Adrenal glands: Unremarkable. Kidneys: The contrast enhanced kidneys are normal in size and without hydronephrosis. The kidneys enhance symmetrically. Abdominal vasculature: The abdominal aorta is normal in course and caliber noting moderate atherosclerotic calcification. Bowel: There is moderate colonic diverticulosis without CT evidence of acute diverticulitis. Moderate fecal retention is seen throughout the colon. No bowel obstruction is identified. The appendix is well-visualized and normal. Peritoneum: There is no intraperitoneal free air or abdominal ascites. Lymphadenopathy: None. Pelvic viscera: The bladder is normal as visualized. The uterus is surgically absent. No adnexal lesion is seen. Skeletal structures: See below for dedicated discussion of the lumbar spine. The skeletal structures appear osteopenic. No lytic or blastic lesions are seen. The bony pelvis and proximal femora appear intact. LUMBAR SPINE: There is an acute superior endplate compression fracture of L1 with mild loss of height and surrounding paravertebral edema. No significantly retropulsed fragments are identified. Vertebral body height is otherwise maintained throughout the lumbar spine. There is minimal anterolisthesis at L4- L5. Alignment is otherwise preserved. The transverse and spinous processes are intact. There is no evidence of spondylolysis. Facet arthropathy is seen in the lower lumbar region. There is advanced disc space narrowing with endplate sclerosis at L5-S1. A large posterior disc osteophyte complex is noted at this level within an inferiorly extruded fragment. Only mild degenerative disc space narrowing is seen at the remaining lumbar levels. Broad-based posterior disc bulge is noted at L4-L5. This likely contribute to acquired compromise the central canal and impinges the exiting bilateral L4 nerve roots. The paraspinous soft tissues are within normal limits. IMPRESSION: 1. There is no evidence of solid organ injury in the abdomen or pelvis. 2. There is an acute superior endplate compression fracture of L1 with mild loss of height as detailed above. No retropulsed fragments are identified. 3. No additional acute fracture is seen involving the lumbar spine. 4. Degenerative disc disease at L4-L5 and L5-S1 as above. An inferiorly extruded calcified disc fragment is suggested at L5. 5. Additional findings as above. ACT 112: Negative or not required by law. Electronically signed by: Ariel Cummings M.D. 03/02/2021 11:[address] 03/02/21 09:53 CT thoracic spine w con HISTORY: 60 years-old Female Fall on tuesday, severe back pain, abd pain . Acute severe mid back pain status post fall COMPARISON: CT lumbar spine of same day, lumbar spine radiographs 02/28/2021 and 12/29/2020. TECHNIQUE: Multiple axial CT images of the thoracic spine were obtained following the intravenous administration of 94 mL Optiray 320. A dose lowering technique was used consistent with the principals of ALARA. FINDINGS: Acute versus subacute L1 compression deformity with 30% superior endplate height loss is unchanged from the 02/28/2021 exam, however is new from 12/29/2020. No retropulsion. No additional acute fracture or subluxation. Mild multilevel intervertebral disc space narrowing with mild to moderate spondylitic spurring and mild facet arthrosis. The imaged ribs appear intact. The imaged lung still appear clear. No pneumothorax. IMPRESSION: 1. 30% superior endplate L1 compression deformity is new from 12/29/2020 and appears acute. No retropulsion. 2. No acute thoracic spine fracture identified. 3. Degenerative changes as above. ACT 112: Negative or not required by law. The above report was generated using voice recognition software. It may contain grammatical, syntax or spelling errors. Electronically signed by: Booker Rosenberg M.D. 03/02/2021 11:46 AM Abdomen/Pelvis CT 03/02/21 09:55 CT SCAN OF THE ABDOMEN AND PELVIS WITH IV CONTRAST; CT SCAN OF THE LUMBAR SPINE WITH IV CONTRAST CLINICAL HISTORY: Fall. Low back pain. Generalized abdominal pain. COMPARISON STUDY: Abdominal CT dated 02/06/2010. Lumbar spine radiographs dated 02/28/2021. TECHNIQUE: Following the IV administration of 94 cc of Optiray 320, CT scan of the abdomen and pelvis is performed from the lung bases to the proximal femora. Additionally, CT scan of the lumbar spine is performed from the lower thoracic spine to the sacrum. Images for both examinations are reviewed in the axial, sagittal, and coronal planes. IV contrast was administered without complication. A dose lowering technique was utilized adhering to the principles of ALARA. FINDINGS: Lung bases: The heart is normal in size noting a small pericardial effusion. There are coronary artery calcifications. The lung bases are clear. Liver: The contrast-enhanced liver is normal in size, contour, and attenuation. There is no intrahepatic biliary ductal dilatation. The hepatic veins and portal veins are patent. Gallbladder: Unremarkable. Spleen: Normal in size and attenuation. Pancreas: Unremarkable. Adrenal glands: Unremarkable. Kidneys: The contrast enhanced kidneys are normal in size and without hydronephrosis. The kidneys enhance symmetrically. Abdominal vasculature: The abdominal aorta is normal in course and caliber not ing moderate atherosclerotic calcification. Bowel: There is moderate colonic diverticulosis without CT evidence of acute diverticulitis. Moderate fecal retention is seen throughout the colon. No bowel obstruction is identified. The appendix is well-visualized and normal. Peritoneum: There is no intraperitoneal free air or abdominal ascites. Lymphadenopathy: None. Pelvic viscera: The bladder is normal as visualized. The uterus is surgically absent. No adnexal lesion is seen. Skeletal structures: See below for dedicated discussion of the lumbar spine. The skeletal structures appear osteopenic. No lytic or blastic lesions are seen. The bony pelvis and proximal femora appear intact. LUMBAR SPINE: There is an acute superior endplate compression fracture of L1 with mild loss of height and surrounding paravertebral edema. No significantly retropulsed fragments are identified. Vertebral body height is otherwise maintained throughout the lumbar spine. There is minimal anterolisthesis at L4- L5. Alignment is otherwise preserved. The transverse and spinous processes are intact. There is no evidence of spondylolysis. Facet arthropathy is seen in the lower lumbar region. There is advanced disc space narrowing with endplate sclerosis at L5-S1. A large posterior disc osteophyte complex is noted at this level within an inferiorly extruded fragment. Only mild degenerative disc space narrowing is seen at the remaining lumbar levels. Broad-based posterior disc bulge is noted at L4-L5. This likely contribute to acquired compromise the central canal and impinges the exiting bilateral L4 nerve roots. The paraspinous soft tissues are within normal limits. IMPRESSION: 1. There is no evidence of solid organ injury in the abdomen or pelvis. 2. There is an acute superior endplate compression fracture of L1 with mild loss of height as detailed above. No retropulsed fragments are identified. 3. No additional acute fracture is seen involving the lumbar spine. 4. Degenerative disc disease at L4-L5 and L5-S1 as above. An inferiorly extruded calcified disc fragment is suggested at L5. 5. Additional findings as above. ACT 112: Negative or not required by law. Electronically signed by: Ariel Cummings M.D. 03/02/2021 11:50 AM Lumbar Spine MRI 03/02/21 12:10 LUMBAR SPINE MRI HISTORY: fall, low back pain TECHNIQUE: Multiplanar multisequence MRI of the lumbar spine was performed without the use of contrast. COMPARISON: Lumbar spine CT 03/02/2021. FINDINGS: For the purpose of the report the L5-S1 disc space will be located on axial image 29 of 31. There is 4 mm of anterolisthesis of L4 on L5. Severe disc space narrowing at L5- S1. Mild disc space narrowing throughout the remaining lumbar spine. There is an acute mild superior endplate compression fracture at L1, unchanged. This demonstrates up to 10% loss of height anteriorly. No associated retropulsion. No additional fractures identified within the lumbar spine. Endplate edema at L5-S1 is likely due to the long-standing degenerative change. The conus terminates at the L1-L2 disc space level. Mild paravertebral edema at the L1 level is likely secondary to the adjacent fracture. Mild motion artifact. L1-L2: No significant central canal or neural foraminal narrowing. L2-L3: Small broad-based posterior disc bulge without significant central canal or neural foraminal narrowing. L3-L4: No significant central canal or neural foraminal narrowing. L4-L5: Small broad-based posterior disc bulge with ligamentum and facet hypertrophy resulting in [id number] central canal and mild to moderate bilateral neural foraminal narrowing. L5-S1: Broad-based posterior disc bulge without significant central canal narrowing. There is moderate right and mild left neural foraminal narrowing. IMPRESSION: 1. Redemonstration of the acute mild superior endplate compression fracture at L1. No associated retropulsion. 2. No additional fractures within the lumbar spine. 3. Degenerative changes as described above. ACT 112: Negative or not required by law. Electronically signed by: Diego Claros M.D. 03/02/2021 4:36 PM Lumbar Spine X-Ray 03/05/21 12:15 INTRAOPERATIVE RADIOGRAPHS CLINICAL HISTORY: L1 kyphoplasty. Fluoroscopy time: 121 seconds. FINDINGS: 2 spot fluoroscopic views of the lumbar spine are correlated with lumbar spine MRI dated 03/02/2021. There is a mild superior endplate compression deformity of L1 with kyphoplasty cement in place. The cement appears appropriately positioned. IMPRESSION: Intraoperative images from an L1 kyphoplasty procedure as above. Electronically signed by: Ariel Cummings M.D. 03/05/2021 5:01 PM Hospital Course (1) Closed compression fracture of L1 vertebra: s/p fall at home with uncontrolled pain and dehydration secondary to inability to ambulate/access --Imaging with L1 compression fracture -- Vit D level normal earlier this year and L1 compression fx likely osteoporotic in nature --Orthopedics consulted s/p kyphoplasty procedure by Dr Pimentel 03/06 Pain now controlled on oral medications (previously required Dilaudid [employer] prior to surgery) and oxycodone prn sent at d/c --> can continue lidocaine patch prn if she would like, calcitonin nasal spray --> sent with tube of voltaren gel QID prn and instructed can buy OTC if needed continued use Moving bowels (replacement of magnesium as below) and can use OTC supplementation as needed while on PPI therapy if symptoms recur Biopsy done by Dr Pimentel intra-op and pending and will need outpatient follow-up Initially on prednisone 50mg daily but discontinued early for increased anxiety symptoms and pain remained controlled --> Of note, patient previously on Klonopin 3x/day and weaned to 1x/day and was not refills after most recent fill. --> Given dose of hydroxyzine 10mg with effective control of anxiety and this was continue at d/c and appt to be made to see Dr. Vinson for PCP follow up as she voiced frustrations with issues with current PCP and was going to consider switching practices PT/OT evals pre-op with recs for rehab however improvements made after surgical intervention and patient ambulating without walker and deemed safe for d/c home. (2) Acute hyponatremia: 2nd to poor intake, rsolved and then slightly low 2nd to prednisone use. ALso on HCTZ 135 prior to d/c and HCTZ was resumed but she did get prednisone day prior and suspect improvement now that PO adequate and no further steroids (3) Cervical disc disease: stable no issues (4) Gastritis: Chronic, probably worsened by steroids and these were stopped (scheduled for 4 days but she did refuse on 1 of those). Controlled with maalox x 1. No further steroids. Avoidance of all etoh/smoking discussed Continued PPI and Carafate (5) COPD (chronic obstructive pulmonary disease): Continued Trelegy or equivalent Continued Albuterol 90mcg HFA q6 prn 2 puffs Given spacer by RN prior to d/c and patient did get neb tx early in day for tightness with wheezing which resolved with tx --> instructed as she continues with abstinence from smoking cessation 98% on room air (6) DJD (degenerative joint disease) of knee: meds for #1 will help this (7) Depression with anxiety: cont home meds -- see above and had no further klonopin rxs --> started and sent on Vistaril (reported effectiveness) (8) Hypertension: Continued Amlodipine, HCTZ, and Losartan Controlled and 133/72 (9) Irritable bowel disease: cont bentyl cont bowel regimen due to heavy narcotic use Had 3 BM (previously no bowel movement since prior to surgery as above) after mag citrate Recd continue bowel regimen at discharge however has been moving bowels even today (10) Hyperthyroidism: Continued PTU 50 mg PO BID TSH on 02/28 wnl (11) Tremor of both hands: hyperthyroidism is controlled Not likely secondary to alcohol withdrawal given decreased intake reported, possibly due to albuterol and anxiety about going home. Question secondary to prednisone use and will limit taper to 5 days as above -- stopped and resolved Also -- replacement of mag low at 1.3 and stable on repeat No tremor any longer --> also sent on Vistaril prn as above for anxiety as recently weaned off of klonopin by PCP DVT Proph Lovenox, then held prior to surgery She ambulated lots, without need for walker post-operatively PT, OT evals (pre-op) both advised inpatient rehab initially however it appears the patient able to go home safely after repeat eval post-op Discharged home with daughter and jesica Total Time Total Time Spent Total Time Spent (In Minutes): 75 Discharge Plan Discharge Items Patient Disposition: Home - Self-Care Reason For Visit: BACK PAIN Discharge Diagnosis: Compression Fracture L1 Goals: You have been hospitalized for an urgent problem which required surgery. During your stay at [facility], we have made an effort to correct the problem that brought you to the hospital while keeping you as comfortable as possible. Surgery and medications were used to bring your condition under control and your discharge instructions will include directions for any medications you should take after leaving the hospital. Please make sure to follow the advice of your surgeon regarding follow up with the surgeon and with your primary care provider. Activity: Per Instructions section Lifting: No more than 5 pounds Bathing: No limitations Sexual Activity: After two weeks Non-emergency contact: Primary Care Provider and Surgeon Call non-emergency contact if: you have any medication questions Follow-up/Referrals: Francisca Vinson DO [Physician] - (1 week) Js Pimentel DO [Surgeon] - Diet: Heart Healthy Addtl Attending Provider Instructions: You have been hospitalized for back pain and found to have a compression fracture of L1 vertebrae. Dr Pimentel from orthopedics was consulted and you underwent kyphoplasty for correction and have been doing well with therapy that they felt you are stable for discharge home. You will be provided pain medication to utilize as needed for breakthrough pain, however you should utilize tylenol for all non-severe pain. Please note, pain medication can cause constipation and you can utilize over the counter stool softeners like miralax and colace as needed to help keep bowels regular. You have also had your magnesium level replaced and it has been stable on repeat labs. This is probably likely due to your protonix use as this can cause magnesium to be low. You can take an over the counter magnesium daily to help if you notice you have continued cramping/tremors. For anxiety, it has been discussed and trialed for hydroxyzine (Vistaril) 10mg every 8 hours as needed for anxiety and as discussed, you can utilize 20mg at night if needed for sleep. Please note that this can cause dry mouth as most common bothersome side effect. Please keep well hydrated. This is a safer medication and not addicting like the klonopin and has been effective for anxiety. Please note, prednisone was used during admission as well (a steroid) and this can frequently make people more anxious. You are not being continued on any steroids. You should continue to utilize inhaler as needed for chest tightness as you will likely have increased sputum production as you continue to avoid smoking cigarettes as your lining is healing. You will be made an appointment with Dr. Vinson in follow up and should follow up with Dr. Pimentel to monitor your progress after hospital discharge.. Please return to the emergency department with any uncontrolled pain, fever, chills, chest pain, or for any other symptoms that are concerning for you. It has been a pleasure being a part of the medical team providing for her while she has been in hospital. Take care! Addtl Doctor Of Radiology Provider Instructions: Patient may shower. She is to avoid lifting more than 5 pounds. She may ambulate as tolerated. Please follow-up in our office in 2 weeks for an x-ray. [id number] Pending Studies at Discharge: Yes Studies:: Operative Biopsy Stand-Alone Forms: My [facility], Opioid Pain Management, Smoking Cessation Medications and DC Order Prescriptions: New hydrocodone-acetaminophen 5-325 mg Tablet 2 tab PO Q4H PRN (Reason: pain) Qty: 16 RF: 0 diclofenac sodium [Voltaren Arthritis Pain] 1 % Gel 4 g EXT QID PRN (Reason: pain) Qty: 100 RF: 0 hydroxyzine HCl 10 mg tablet 10 mg PO Q6H PRN (Reason: anxiety) Qty: 30 RF: 1 Continued dicyclomine 20 mg tablet 20 mg PO TID Qty: 90 RF: 1 propylthiouracil 50 mg tablet 50 mg PO BID Qty: 90 RF: 1 albuterol sulfate [Ventolin HFA] 90 mcg/actuation HFA aerosol inhaler 2 puff inhalation Q6H PRN (Reason: Shortness Of Breath Or Wheezing) Qty: 18 RF: 2 trazodone 100 mg tablet 100 mg PO HS Qty: 90 RF: 1 sucralfate [Carafate] 1 gram tablet 1 g PO ACHS Qty: 180 RF: 3 hydrochlorothiazide 12.5 mg tablet 12.5 mg PO QAM RF: 0 losartan [Cozaar] 50 mg tablet 50 mg PO BID RF: 0 nicotine [Nicoderm CQ] 14 mg/24 hr patch 24 hour 1 patch transdermal DAILY RF: 0 clonazepam [Klonopin] 0.5 mg tablet 0.5 mg PO HS RF: 0 sertraline [Zoloft] 100 mg tablet 100 mg PO HS RF: 0 amlodipine [Norvasc] 5 mg tablet 5 mg PO BID RF: 0 pantoprazole [Protonix] 40 mg tablet,delayed release (DR/EC) 40 mg PO BID RF: 0 montelukast [Singulair] 10 mg tablet 10 mg PO HS RF: 0 Trelegy Ellipta 100-62.5-25 mcg blister with device 1 inh inhalation DAILY PRN (Reason: Shortness Of Breath) RF: 0 ondansetron 4 mg tablet,disintegrating 4 mg PO Q6H PRN (Reason: nausea and vomiting) Qty: 10 RF: 0 Discontinued hydrocodone-acetaminophen 5-325 mg tablet 1 tab PO Q4H PRN (Reason: pain) Qty: 15 RF: 0 Discharge Orders: Discharge Order (Routine); Ordered 03/07/21 Ordered By: Janett Laughlin Admission Data Admit Date/Time: 03/02/21 14:35 Attending Provider: Bria Villavicencio Admit Provider: Js Pimentel Primary Care Provider: Alonzo Goddard Other Providers: Bautista Salazar ; Js Pimentel ; [facility] Other Interventions: Discharge Summary Assessment (RN) Last Done: 03/07/21 15:50 Coding Level of Care Code D/C DAY MANAGEMENT >30 MINS Diagnoses Closed compression fracture of L1 vertebra S32.010A Acute hyponatremia E87.1 Cervical disc disease M50.90 Gastritis K29.70 COPD (chronic obstructive pulmonary disease) J44.9 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
[2021-03-07 15:51] VITALS: BP 133/72
== END 2021-03-07 16:55 | disposition home health service (06) | DRG 478 ==
LOC: ED 09:08 → SUATTDRO 14:35 → 3E 14:35